=== PATIENT | male | born 1975 | race Caucasian/White ===

== ENCOUNTER 2016-12-08 14:20 | Emergency (ER) | payer OTHER ==
[~2016-12-08 14:20] MED LIST: /CELE20CA OR; BUSP15TA OR; GABA600T3 OR; NICO21DI4 TD; PRIL20CA OR; PROP10TAB OR; TRAM50TA2 OR; TRAZ50TA OR
[2016-12-08] MEDS ORDERED: GASTROGRAFIN SOLUTION 30ML (Q9963) As Ordered ONE (15:44)
[2016-12-08 16:02] LABS: BASO % 0.3 % (0.0-1.0); EOS % 0.7 % (0.0-3.0); LARGE UNSTAINED CELL # 0.1 K/mm3 (0.0-0.4); LARGE UNSTAINED CELL % 0.7 % (0.0-4.0); LYMPH # 1.3 K/mm3 (1.5-4.5); LYMPH % 17.9 % (24.0-44.0); MEAN CORPUSCULAR HEMOGLOBIN 31.7 pg (27.0-33.0); MEAN CORPUSCULAR VOLUME 90.6 fl (80.0-96.0); MONO # 0.4 K/mm3 (0.0-0.8); NEUTROPHILS # 5.2 K/mm3 (1.8-7.7); NEUTROPHILS % 75.4 % (36.0-66.0); PLATELET COUNT, AUTOMATED 194 k/mm3 (150-450); RED CELL DISTRIBUTION WIDTH 13.4 % (11.5-14.5)
[2016-12-08 16:25] LABS: ALBUMIN/GLOBULIN RATIO 1.25 (1.00-1.93); ALKALINE PHOSPHATASE 61 U/L (45-117); ALT/SGPT 26 U/L (12-78); ANION GAP 8 MEQ/L (8-16); AST/SGOT 20 U/L (15-37); BILIRUBIN,DIRECT 0.1 MG/DL (0.0-0.2); BILIRUBIN,TOTAL 0.7 MG/DL (0.2-1.0); BLOOD UREA NITROGEN 10 MG/DL (7-18); CALCIUM LEVEL 9.2 MG/DL (8.5-10.1); CARBON DIOXIDE LEVEL 29 MEQ/L (21-32); CHLORIDE LEVEL 106 MEQ/L (98-107); CREATININE FOR GFR 1.09 MG/DL (0.70-1.30); GLOMERULAR FILTRATION RATE > 60.0 (>60); GLUCOSE, FASTING 96 MG/DL (70-105); POTASSIUM SERUM 3.8 MEQ/L (3.5-5.1); SODIUM LEVEL 143 MEQ/L (136-145); TOTAL PROTEIN 7.2 GM/DL (6.4-8.2)
[2016-12-08] MEDS ORDERED: ONDANSETRON 4 MG ORAL DISINTEGRATING TAB (S0181) As Ordered ONE (16:34)
[2016-12-08] MEDS ORDERED: ISOVUE-370 76% 100ML VIAL (Q9967) As Ordered ONE (17:10)
--- NOTE | 2016-12-08 18:20 | REPUSA ---
CT of the abdomen and pelvis with contrast Clinical statement: Pain. Technique: Multiple axial CT images were obtained from the base of the lungs through the floor of the pelvis utilizing 5 mm axial slices after administration of nonionic intravenous contrast. Coronal an d sagittal reconstructions were also obtained. No comparison is available. Findings: Chest: The visualized lung bases are clear. Abdomen: The liver, spleen, pancreas, kidneys, and left adrenal gland are unremarkable. A 2.4 cm simp le cyst is seen in the posterior left kidney. There is a large low attenuation lesion apparently orig inating from the posterior medial limb of the right adrenal gland measuring 7.5 x 5.4 cm. The aorta i s within normal limits. There is no evidence of abdominal lymphadenopathy or ascites. Pelvis: There are several periumbilical hernia is noted. The right periumbilical hernia containing nu merous small bowel loops. There is no evidence of incarceration or obstruction at this site. The sherly sree bowel is unremarkable, with no obstructive or inflammatory changes. The urinary bladder is with in normal limits. The other pelvic structures appear grossly intact. There is no evidence of pelvic l ymphadenopathy or ascites. Bones: There are no suspicious osseous abnormalities seen. Impression: 1. Several large periumbilical hernias as described. The right periumbilical hernia containing chyna us small bowel loops which are neither incarcerated or obstructed. The others containing only omental fat. No other inflammatory changes are seen. 2. Simple left renal cyst. 3. Large low attenuation right adrenal mass, most consistent with a large benign adrenal adenoma.
--- NOTE | 2016-12-08 20:05 | EDDOCDS ---
Nurse's Notes [facility] Name: Pierre Padilla Age: 41 yrs Sex: Male : 1975 Arrival Date: 12/08/2016 Time: 14:20 Bed I2 / M2 Private MD: RAMESH [facility]IME [facility] Diagnosis: Umbilical hernia;Disorder of adrenal gland, unspecified Presentation: 12/08 14:46 Presenting complaint: Patient states: stomach pain for several days, pain is area of kr3 umbilical hernia. Risk factors: the patient reports not having a history of previous torsion. Adult Sepsis Screening: The patient does not have new or worsening altered mentation. Patient's respiratory rate is less than 22. Systolic blood pressure is greater than 100. Patient has a qSOFA score of 0- Negative Sepsis Screen. Suicide/Homicide risk assessment- the patient denies having any suicidal and/or homicidal ideations and does not present with any other emotional, behavioral or mental health complaints. Status: Patient is not a service specialist or dependent. Transition of care: patient was not received from another setting of care. 14:46 Acuity: BECKY Level 3 kr3 14:46 Method Of Arrival: Ambulance kr3 Triage Assessment: 14:48 General: Appears in no apparent distress, Behavior is appropriate for age, cooperative. kr3 Pain: Location: umbilical area Pain currently is 4 out of 10 on a pain scale. At worst was 10 out of 10 on a pain scale. HIV screening NA for this visit Offered previously. GI: Reports nausea. GI: Reports has not tried to eat today. Derm: Skin is normal. Historical: - Allergies: no known allergies; - Home Meds: 1. gabapentin 600 mg Oral tab 1 tab 3 times per day 2. omeprazole 40 mg Oral cpDR 1 cap once daily 3. Prozac 40 mg Oral cap 1 cap once daily 4. clonazepam 0.5 mg Oral tab 1 tab 2 times per day - PMHx: Anxiety; Depression; GERD; LE neuropathy; Umbilical hernia; - PSHx: Gastric Bypass (2001); - Social history: Smoking status: Patient uses tobacco products, current every day smoker. No barriers to communication noted, The patient speaks fluent Upper Sorbian, Speaks appropriately for age. - Family history: Not pertinent. - : The pt / caregiver states he / she is not on anticoagulants. Home medication list is obtained from the patient. - Exposure Risk Screening:: None identified. Screenin:00 Screening information is obtained from the patient. Fall risk: No risks identified. ml6 Assistance ADL's: requires no assistance with activities of daily living. Abuse/DV Screen: The patient / caregiver reports he/she is: not in a situation that causes fear, pain or injury. Nutritional screening: No deficits noted. Advance Directives: Currently, there is no health care proxy. home support is adequate. Assessment: 14:50 General: Appears in no apparent distress, Behavior is appropriate for age, cooperative. ml6 Cardiovascular: No deficits noted. Respiratory: No deficits noted. Airway is patent Breath sounds are clear bilaterally. GI: Abdomen is obese, Bowel sounds present X 4 quads. Abd is soft X 4 quads Abd is tender to palpation X 4 quads. Reports nausea, Denies. 15:45 Reassessment: Patient appears in no apparent distress at this time. Patient denies pain ml6 at this time. Patient states feeling better. Patient states symptoms have improved. 16:50 Reassessment: Patient appears in no apparent distress at this time. Patient denies pain ml6 at this time. Patient states feeling better. Patient states symptoms have improved. patient denies pain or discomfort. 17:50 General: Appears in no apparent distress. Pain: Denies pain. Neurological: No deficits ml6 noted. Level of Consciousness is awake, alert, Oriented to person, place, time, Ciso are equal bilaterally. Cardiovascular: No deficits noted. Capillary refill < 3 seconds is brisk in bilateral fingers toes Heart tones S1 S2 present Edema is absent. Pulses are all present. Rhythm is regular Chest pain is denied. Respiratory: No deficits noted. Airway is patent Respiratory effort is even, unlabored, Respiratory pattern is regular, symmetrical, Breath sounds are clear bilaterally. GI: Abdomen is obese, Bowel sounds present X 4 quads. Abd is soft and non tender X 4 quads. 20:02 General: Appears in no apparent distress, comfortable, Behavior is cooperative. Pain: jf3 Denies pain. Neurological: Level of Consciousness is awake, alert, Oriented to person, place, time. Cardiovascular: Capillary refill < 3 seconds Chest pain is denied. Respiratory: Airway is patent Respiratory effort is even, unlabored, Respiratory pattern is regular, symmetrical. Derm: Skin is pink, warm & dry. Vital Signs: 14:23 BP 126 / 71; Pulse 74; Resp 18 S; Temp 98.7(O); Pulse Ox 98% on R/A; Weight 163.29 kg gr2 (R); Height 5 ft. 10 in. (177.80 cm) (R); Pain 3/10; 18:00 BP 185 / 84; Pulse 71; Resp 20; Temp 99.3; Pulse Ox 97% ; Pain 0/10; jam1 18:45 BP 174 / 88; Pulse 56; Resp 20; Temp 98.9; Pulse Ox 97% ; Pain 0/10; jam1 19:50 BP 153 / 73; Pulse 76; Resp 18; Temp 99.0; Pulse Ox 98% ; Pain 0/10; ajs 14:23 Body Mass Index 51.65 (163.29 kg, 177.80 cm) gr2 Vitals: 14:23 Log In Time: December 08, 2016 at 14:23. gr2 ED Course: 14:22 Patient visited by Uzair Ness. gr2 14:22 Patient moved to Waiting gr2 14:23 [facility] is Private Physician. gr2 14:24 Patient visited by Uzair Ness. gr2 14:24 Patient moved to Pre RCE gr2 14:47 Triage Initiated kr3 14:50 Patient moved to Triage 3 jf3 15:23 Kingston Jara PA-C is PHCP. jk8 15:23 Sarah Dickey MD is Attending Physician. jk8 15:23 Patient visited by Kingston Jara PA-C. jk8 15:35 Patient moved to I2 / M2 jam1 15:38 [facility] Payment Agreement was scanned into [employer] and attached to record. lg 15:42 Pt greeted and oriented to ED. Patient advised of names of staff involved in care, jam location of call michelle, wait times and NPO status. Patient has correct armband on for positive identification. Placed in gown. Bed in low position. Call light in reach. Side rails up X 1. Adult w/ patient. Door closed. 15:58 Inserted peripheral IV: 18gauge IV and blood collected. Patient tolerated the procedure ml6 well. No procedures done that require assistance. Labs drawn. (by ED staff). Sent per order to lab. 16:00 The patient / caregiver is instructed regarding the plan of care and ED course. ml6 16:01 Patient visited by Pj Holley, GAY. ml6 16:51 Patient visited by Pj Holley, GAY. ml6 17:48 Patient visited by Pj Holley, GAY. ml6 18:35 Patient visited by Pj Holley, GAY. ml6 18:40 CT ABD & PELVIS: IV and Oral Contrast Returned. EDMS 19:04 Adarsh Phan DO is Referral Physician. jk8 19:09 Mare Gonzalez is Referral Physician. jk8 19:50 Patient visited by Rimma Frankel. ajs 20:02 Discontinued IV lock intact, bleeding controlled, pressure dressing applied, No jf3 redness/swelling at site. Administered Medications: 15:43 Drug: Diatrizoate Meglumine & Sodium 10 ml [diatrizoate meglumine and diat.sodium 66 ml6 %-10 % oral solution (10 mL)] Route: PO; 16:35 Drug: Ondansetron ODT 8 mg [ondansetron 4 mg disintegrating tablet (2 tabs)] Route: PO; ml6 17:43 CANCELLED (iv): morphine 4 mg IM once jk8 17:47 CANCELLED (reduced): morphine 4 mg IVP once jk8 Order Results: Lab Order: LINCOL[place]; SPEC'M 12/08/16 15:55 Test: GLUCOSE, FASTING; Value: 96; Range: 70-105; Units: MG/DL; Status: F Test: BLOOD UREA NITROGEN; Value: 10; Range: 7-18; Units: MG/DL; Status: F Test: CREATININE FOR GFR; Value: 1.09; Range: 0.70-1.30; Units: MG/DL; Status: F Test: GLOMERULAR FILTRATION RATE; Value: > 60.0; Range: >60; Status: F Test: SODIUM LEVEL; Value: 143; Range: 136-145; Units: MEQ/L; Status: F Test: POTASSIUM SERUM; Value: 3.8; Range: 3.5-5.1; Units: MEQ/L; Status: F Test: CHLORIDE LEVEL; Value: 106; Range: 98-107; Units: MEQ/L; Status: F Test: CARBON DIOXIDE LEVEL; Value: 29; Range: 21-32; Units: MEQ/L; Status: F Test: ANION GAP; Value: 8; Range: 8-16; Units: MEQ/L; Status: F Test: CALCIUM LEVEL; Value: 9.2; Range: 8.5-10.1; Units: MG/DL; Status: F Test Note: ; Units are mL/min/1.73 m2 Chronic Kidney Disease Staging per NKF: Stage I & II GFR >=60 Normal to Mildly Decreased Stage III GFR 30-59 Moderately Decreased Stage IV GFR 15-29 Severely Decreased Stage V GFR <15 Very Little GFR Left ESRD GFR <15 on CHIEF VENDOR QUALITY Lab Order: CBC with Diff; SPEC'M 12/08/16 15:55 Test: WHITE BLOOD COUNT; Value: 7.0; Range: 4.0-10.0; Units: K/mm3; Status: F Test: RED BLOOD COUNT; Value: 4.60; Range: 4.30-6.10; Units: M/mm3; Status: F Test: HEMOGLOBIN; Value: 14.6; Range: 14.0-18.0; Units: g/dl; Status: F Test: HEMATOCRIT; Value: 41.7; Range: 42.0-52.0; Abnormal: Below low normal; Units: %; Status: F Test: MEAN CORPUSCULAR VOLUME; Value: 90.6; Range: 80.0-96.0; Units: fl; Status: F Test: MEAN CORPUSCULAR HEMOGLOBIN; Value: 31.7; Range: 27.0-33.0; Units: pg; Status: F Test: MEAN CORPUSCULAR HGB CONC; Value: 35.0; Range: 32.0-36.5; Units: g/dl; Status: F Test: RED CELL DISTRIBUTION WIDTH; Value: 13.4; Range: 11.5-14.5; Units: %; Status: F Test: PLATELET COUNT, AUTOMATED; Value: 194; Range: 150-450; Units: k/mm3; Status: F Test: NEUTROPHILS %; Value: 75.4; Range: 36.0-66.0; Abnormal: Above high normal; Units: %; Status: F Test: LYMPH %; Value: 17.9; Range: 24.0-44.0; Abnormal: Below low normal; Units: %; Status: F Test: MONO %; Value: 5.0; Range: 0.0-5.0; Units: %; Status: F Test: EOS %; Value: 0.7; Range: 0.0-3.0; Units: %; Status: F Test: BASO %; Value: 0.3; Range: 0.0-1.0; Units: %; Status: F Test: LARGE UNSTAINED CELL %; Value: 0.7; Range: 0.0-4.0; Units: %; Status: F Test: NEUTROPHILS #; Value: 5.2; Range: 1.8-7.7; Units: K/mm3; Status: F Test: LYMPH #; Value: 1.3; Range: 1.5-4.5; Abnormal: Below low normal; Units: K/mm3; Status: F Test: MONO #; Value: 0.4; Range: 0.0-0.8; Units: K/mm3; Status: F Test: EOS #; Value: 0.0; Range: 0.0-0.50; Units: K/mm3; Status: F Test: BASO #; Value: 0.0; Range: 0.0-0.2; Units: K/mm3; Status: F Test: LARGE UNSTAINED CELL #; Value: 0.1; Range: 0.0-0.4; Units: K/mm3; Status: F Lab Order: Liver Profile; SPEC'M 12/08/16 15:55 Test: AST/SGOT; Value: 20; Range: 15-37; Units: U/L; Status: F Test: ALT/SGPT; Value: 26; Range: 12-78; Units: U/L; Status: F Test: ALKALINE PHOSPHATASE; Value: 61; Range: 45-117; Units: U/L; Status: F Test: BILIRUBIN,TOTAL; Value: 0.7; Range: 0.2-1.0; Units: MG/DL; Status: F Test: BILIRUBIN,DIRECT; Value: 0.1; Range: 0.0-0.2; Units: MG/DL; Status: F Test: TOTAL PROTEIN; Value: 7.2; Range: 6.4-8.2; Units: GM/DL; Status: F Test: ALBUMIN; Value: 4.0; Range: 3.2-5.2; Units: GM/DL; Status: F Test: ALBUMIN/GLOBULIN RATIO; Value: 1.25; Range: 1.00-1.93; Status: F Radiology Order: CT ABD & PELVIS: IV and Oral Contrast Test: CT ABD & PELVIS: IV and Oral Contrast REASON FOR EXAMINATION: Abdomen Pain; ; CT of the abdomen and pelvis with contrast; Clinical statement: Pain.; Technique: Multiple axial CT images were obtained from the base of the lungs through the floor of the; pelvis utilizing 5 mm axial slices after administration of nonionic intravenous contrast. Coronal an; d sagittal reconstructions were also obtained.; No comparison is available.; Findings:; Chest: The visualized lung bases are clear.; Abdomen: The liver, spleen, pancreas, kidneys, and left adrenal gland are unremarkable. A 2.4 cm simp; le cyst is seen in the posterior left kidney. There is a large low attenuation lesion apparently orig; inating from the posterior medial limb of the right adrenal gland measuring 7.5 x 5.4 cm. The aorta i; s within normal limits. There is no evidence of abdominal lymphadenopathy or ascites.; Pelvis: There are several periumbilical hernia is noted. The right periumbilical hernia containing nu; merous small bowel loops. There is no evidence of incarceration or obstruction at this site. The sherly; sree bowel is unremarkable, with no obstructive or inflammatory changes. The urinary bladder is with; in normal limits. The other pelvic structures appear grossly intact. There is no evidence of pelvic l; ymphadenopathy or ascites.; Bones: There are no suspicious osseous abnormalities seen.; Impression:; 1. Several large periumbilical hernias as described. The right periumbilical hernia containing chyna; us small bowel loops which are neither incarcerated or obstructed. The others containing only omental; fat. No other inflammatory changes are seen.; 2. Simple left renal cyst.; 3. Large low attenuation right adrenal mass, most consistent with a large benign adrenal adenoma.; ; Outcome: 19:05 Discharge ordered by Provider. jk8 20:03 Discharge Assessment: Patient awake, alert and oriented x 3. No cognitive and/or jf3 functional deficits noted. Patient verbalized understanding of disposition instructions. patient administered narcotics - no. The following High Risk Discharge criteria are identified: None. Discharged to home ambulatory, with significant other. Condition: good. Discharge instructions given to patient, Instructed on discharge instructions, follow up and referral plans. medication usage, Demonstrated understanding of instructions, medications, Pt was receptive of discharge instructions/ teaching. CT Study completed. Property :Personal belongings accompany Pt. 20:04 Patient left the ED. jf3 Signatures: Dispatcher [employer] EDMS Sonia Johnston, SPOT WORKER SPOT WORKER jam1 Nat Melchor, Reg Reg lg Brenda Ramesh,RN RN kr3 Pj Holley, RN RN ml6 Rimma Frankel Gainslee gr2 Kingston Jara, PADebra PADebra jk8 Kenrick Cross,RN RN jf3 MTDSigrid
--- NOTE | 2016-12-08 20:05 | EDDOCDS ---
Physician Documentation [facility] Name: Pierre Padilla Age: 41 yrs Sex: Male : 1975 Arrival Date: 12/08/2016 Time: 14:20 Bed I2 / M2 Private MD: RAMESH JAIME, CLINIC Disposition: 12/08/16 19:05 Discharged to Home/Self Care. Impression: Umbilical hernia, Disorder of adrenal gland, unspecified. - Condition is Stable. - Prescriptions for docusate sodium 100 mg Oral capsule - take 1 capsule by ORAL route 2 times per day; 60 capsule. - Medication Reconciliation, Local Pharmacy Hours form. - Follow up: Emergency Department; When: As soon as possible; Reason: Worsening of conditions. Follow up: Adarsh Phan DO; When: 2 - 3 days; Reason: Recheck today's complaints. Follow up: Mare Gonzalez; When: 2 - 3 days; Reason: Recheck today's complaints. - Problem is new. - Symptoms are unchanged. Historical: - Allergies: no known allergies; - Home Meds: 1. gabapentin 600 mg Oral tab 1 tab 3 times per day 2. omeprazole 40 mg Oral cpDR 1 cap once daily 3. Prozac 40 mg Oral cap 1 cap once daily 4. clonazepam 0.5 mg Oral tab 1 tab 2 times per day - PMHx: Anxiety; Depression; GERD; LE neuropathy; Umbilical hernia; - PSHx: Gastric Bypass (2001); - Social history: Smoking status: Patient uses tobacco products, current every day smoker. No barriers to communication noted, The patient speaks fluent Spanish, Speaks appropriately for age. - Family history: Not pertinent. - : The pt / caregiver states he / she is not on anticoagulants. Home medication list is obtained from the patient. - Exposure Risk Screening:: None identified. Vital Signs: 12/08 14:23 BP 126 / 71; Pulse 74; Resp 18 S; Temp 98.7(O); Pulse Ox 98% on R/A; Weight 163.29 kg / gr2 359.99 lbs (R); Height 5 ft. 10 in. (177.80 cm) (R); Pain 3/10; 18:00 BP 185 / 84; Pulse 71; Resp 20; Temp 99.3; Pulse Ox 97% ; Pain 0/10; jam1 18:45 BP 174 / 88; Pulse 56; Resp 20; Temp 98.9; Pulse Ox 97% ; Pain 0/10; jam1 19:50 BP 153 / 73; Pulse 76; Resp 18; Temp 99.0; Pulse Ox 98% ; Pain 0/10; ajs 14:23 Body Mass Index 51.65 (163.29 kg, 177.80 cm) gr2 MDM: 14:42 Abdomen, Flat\E\Upright,PA Chest Ordered. EDMS 15:30 BMP Ordered. EDMS 15:30 CBC with Diff Ordered. EDMS 15:30 Liver Profile Ordered. EDMS 15:31 CT ABD & PELVIS: IV and Oral Contrast Ordered. EDMS 15:33 Financial registration complete. lg 15:35 IV Saline Lock ordered. jk8 15:38 [facility] Payment Agreement was scanned into [employer] and attached to record. lg 15:40 Diatrizoate Meglumine & Sodium Liquid 10 ml PO once; mix in 290cc of water; at 1545 and ml6 1615 x1 ordered. 16:34 Ondansetron ODT Oral Disintegrating Tablet 8 mg PO once ordered. jk8 16:34 CBC with Diff Reviewed. jk8 16:34 BMP Reviewed. jk8 16:34 Liver Profile Reviewed. jk8 17:44 Ice Pack ordered. jk8 18:22 ECG WITH READING ER PHYS+CARDIAG ordered. EDMS 18:32 Vital Signs ordered. jk8 19:13 CT ABD & PELVIS: IV and Oral Contrast Reviewed. jk8 Administered Medications: 15:43 Drug: Diatrizoate Meglumine & Sodium 10 ml [diatrizoate meglumine and diat.sodium 66 ml6 %-10 % oral solution (10 mL)] Route: PO; 16:35 Drug: Ondansetron ODT 8 mg [ondansetron 4 mg disintegrating tablet (2 tabs)] Route: PO; ml6 17:43 CANCELLED (iv): morphine 4 mg IM once jk8 17:47 CANCELLED (reduced): morphine 4 mg IVP once jk8 Signatures: Dispatcher [employer] EDMS Nat Melchor, Quentin Reg lg Brenda Ramesh,RN RN kr3 Pj Holley RN RN ml6 Kingston Jara PA-C PA-C jk8 Kenrick Cross,RN RN jf3 The chart was reviewed and I authenticate all verbal orders and agree with the evaluation and treatment provided.Corrections: (The following items were deleted from the chart) 17:43 17:43 morphine 4 mg IM once ordered. jk8 jk8 17:47 17:43 morphine 4 mg IVP once ordered. jk8 jk8 17:58 17:34 LACTIC ACID LEVEL, LACTATE+LAB ordered. EDMS EDMS Attachments: 15:38 [facility] [place] Agreement lg MTDD
--- NOTE | 2016-12-09 05:37 | REP ---
Abdominal series: Four views. History: Abdominal pain and constipation. Findings: Upright chest radiograph is unremarkable. There is no evidence of infiltrate or free subdiaphragmatic air. Heart is not enlarged. Pleural angles are sharp. Supine and erect views of the abdomen show clips in the right upper quadrant post cholecystectomy. There are two or three loops of air-filled mildly prominent small bowel in the central abdomen. No significant small bowel air-fluid level is seen. There is some air and stool in the proximal and distal colon. No colonic dilation is seen. Flank stripes are intact. No mass or organomegaly is seen. Impression: Nonspecific central abdominal small bowel loops. Clips in the right upper quadrant post cholecystectomy. No evidence of free air. Signed by Ismael Mcelroy MD 12/09/2016 02:22 P
--- NOTE | 2016-12-09 07:09 | ECGEPIP ---
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
--- NOTE | 2016-12-09 13:29 | ER ---
DATE OF CONSULTATION: 12/09/2016 Chief complaint is abdominal pain and nausea. HISTORY OF PRESENT ILLNESS: Patient is a 41-year-old male who had gastric bypass surgery in 2001. It was done open. Since then, he has had an incisional hernia in the upper midline that was supraumbilically. He was told to lose about 100 pounds before anyone would consider surgery. So e has been putting this off for many years. Over the past few weeks, he has had some increased pain in his abdomen and some nausea and having difficulty with bowel movements. So he came into emergency room for evaluation. He is still able to reduce this hernia on his own. When he lays down flat it gets soft and reduces. No problems with fevers or chills. No vomiting. His main complaint is that he felt constipated and was worried that this hernia may be causing some sort of blockage. PAST MEDICAL HISTORY: Anxiety, depression, gastroesophageal reflux disease (GERD), lower extremity neuropathy, incisional hernia. PAST SURGICAL HISTORY: Gastric bypass in 2001. SOCIAL HISTORY: Smokes pack a day. Denies any drug or alcohol abuse. FAMILY HISTORY: Noncontributory. ALLERGIES: None. HOMED MEDICATIONS: - gabapentin - omeprazole - Prozac - clonazepam REVIEW OF SYSTEMS: Pertinent positive as stated in the history of present. PHYSICAL EXAMINATION: General: Alert and oriented times three. No acute distress. Vitals: Blood pressure 126/71, pulse 74, respirations 18, temperature 98.7, pulse oximetry 98% room air. HEENT: Pupils equal, round, react to light and accommodation. Heart: S1, S2. Regular rate and rhythm. Lungs: Clear to auscultation bilaterally. Abdomen: Soft, nontender, nondistended. Bowel sounds positive. There is a palpable midline partially incarcerated hernia just above the umbilicus. Extremities: No clubbing, cyanosis or edema. LABORATORY DATA: White count 7, hemoglobin 14.6, platelets 194, potassium 3.8, total bilirubin 0.7, albumin 4. IMAGING: CT abdomen and pelvis shows several large periumbilical hernias as described. The right periumbilical hernia contains numerous small-bowel loopsk, which are nonobstructed. The others containing omental fat. ASSESSMENT AND PLAN: The patient is 41-year-old male with a large multi defect incisional hernia from previous gastric bypass surgery. Some of these hernias are reducible. Some are incarcerated. They are all group together in one large area. At this time, his pain is reduced. The bowel wall portion of this hernia is reduced. No signs of bowel obstruction. He is also complaining of some intermittent chest pain and palpitations over the last few weeks. Therefore, recommendation is to check an electrocardiogram (EKG). If that is okay, have him discharged from the emergency room, followup with me in the office this week to schedule an outpatient laparoscopic repair. We will also send him for cardiac clearance prior to surgery at the workup this chest pain.
--- NOTE | 2016-12-10 21:06 | EDDOCDS ---
Physician Documentation [facility] Name: Pierre Padilla Age: 41 yrs Sex: Male : 1975 Arrival Date: 12/08/2016 Time: 14:20 Bed I2 / M2 Private MD: RAMESH JAIME, CLINIC Disposition: 12/08/16 19:05 Discharged to Home/Self Care. Impression: Umbilical hernia, Disorder of adrenal gland, unspecified. - Condition is Stable. - Prescriptions for docusate sodium 100 mg Oral capsule - take 1 capsule by ORAL route 2 times per day; 60 capsule. - Medication Reconciliation, Local Pharmacy Hours form. - Follow up: Emergency Department; When: As soon as possible; Reason: Worsening of conditions. Follow up: Adarsh Phan DO; When: 2 - 3 days; Reason: Recheck today's complaints. Follow up: Mare Gonzalez; When: 2 - 3 days; Reason: Recheck today's complaints. - Problem is new. - Symptoms are unchanged. Historical: - Allergies: no known allergies; - Home Meds: 1. gabapentin 600 mg Oral tab 1 tab 3 times per day 2. omeprazole 40 mg Oral cpDR 1 cap once daily 3. Prozac 40 mg Oral cap 1 cap once daily 4. clonazepam 0.5 mg Oral tab 1 tab 2 times per day - PMHx: Anxiety; Depression; GERD; LE neuropathy; Umbilical hernia; - PSHx: Gastric Bypass (2001); - Social history: Smoking status: Patient uses tobacco products, current every day smoker. No barriers to communication noted, The patient speaks fluent Khmer, Speaks appropriately for age. - Family history: Not pertinent. - : The pt / caregiver states he / she is not on anticoagulants. Home medication list is obtained from the patient. - Exposure Risk Screening:: None identified. Vital Signs: 12/08 14:23 BP 126 / 71; Pulse 74; Resp 18 S; Temp 98.7(O); Pulse Ox 98% on R/A; Weight 163.29 kg / gr2 359.99 lbs (R); Height 5 ft. 10 in. (177.80 cm) (R); Pain 3/10; 18:00 BP 185 / 84; Pulse 71; Resp 20; Temp 99.3; Pulse Ox 97% ; Pain 0/10; jam1 18:45 BP 174 / 88; Pulse 56; Resp 20; Temp 98.9; Pulse Ox 97% ; Pain 0/10; jam1 19:50 BP 153 / 73; Pulse 76; Resp 18; Temp 99.0; Pulse Ox 98% ; Pain 0/10; ajs 14:23 Body Mass Index 51.65 (163.29 kg, 177.80 cm) gr2 MDM: 14:42 Abdomen, Flat\E\Upright,PA Chest Ordered. EDMS 15:30 BMP Ordered. EDMS 15:30 CBC with Diff Ordered. EDMS 15:30 Liver Profile Ordered. EDMS 15:31 CT ABD & PELVIS: IV and Oral Contrast Ordered. EDMS 15:33 Financial registration complete. lg 15:35 IV Saline Lock ordered. jk8 15:38 [facility] Payment Agreement was scanned into [employer] and attached to record. lg 15:40 Diatrizoate Meglumine & Sodium Liquid 10 ml PO once; mix in 290cc of water; at 1545 and ml6 1615 x1 ordered. 16:34 Ondansetron ODT Oral Disintegrating Tablet 8 mg PO once ordered. jk8 16:34 CBC with Diff Reviewed. jk8 16:34 BMP Reviewed. jk8 16:34 Liver Profile Reviewed. jk8 17:44 Ice Pack ordered. jk8 18:22 ECG WITH READING ER PHYS+CARDIAG ordered. EDMS 18:32 Vital Signs ordered. jk8 19:13 CT ABD & PELVIS: IV and Oral Contrast Reviewed. jk8 12/09 11:47 T-Sheet-- Draft Copy was scanned into [employer] and attached to record. gb 11:47 ECG/EKG was scanned into [employer] and attached to record. gb Administered Medications: 12/08 15:43 Drug: Diatrizoate Meglumine & Sodium 10 ml [diatrizoate meglumine and diat.sodium 66 ml6 %-10 % oral solution (10 mL)] Route: PO; 16:35 Drug: Ondansetron ODT 8 mg [ondansetron 4 mg disintegrating tablet (2 tabs)] Route: PO; ml6 17:43 CANCELLED (iv): morphine 4 mg IM once jk8 17:47 CANCELLED (reduced): morphine 4 mg IVP once jk8 Signatures: Dispatcher [employer] EDMS Chloe Pruitt, Reg Reg gb Nat Melchor, Reg Reg lg Brenda Ramesh,RN RN kr3 Pj Holley, RN RN ml6 Kingston Jara PA-C PA-C jk8 Kenrick Cross,RN RN jf3 The chart was reviewed and I authenticate all verbal orders and agree with the evaluation and treatment provided.Corrections: (The following items were deleted from the chart) 17:43 17:43 morphine 4 mg IM once ordered. jk8 jk8 17:47 17:43 morphine 4 mg IVP once ordered. jk8 jk8 17:58 17:34 LACTIC ACID LEVEL, LACTATE+LAB ordered. EDMS EDMS Attachments: 15:38 [facility] lg 12/09 11:47 T-Sheet-- Draft Copy gb 11:47 ECG/EKG gb Chart Complete MTDD
--- NOTE | 2016-12-10 21:06 | EDDOCDS ---
Nurse's Notes [facility] Name: Donta Voss Age: 41 yrs Sex: Male : 1975 Arrival Date: 12/08/2016 Time: 14:20 Bed I2 / M2 Private MD: RAMESH JAIME CLINIC Diagnosis: Umbilical hernia;Disorder of adrenal gland, unspecified Presentation: 12/08 14:46 Presenting complaint: Patient states: stomach pain for several days, pain is area of kr3 umbilical hernia. Risk factors: the patient reports not having a history of previous torsion. Adult Sepsis Screening: The patient does not have new or worsening altered mentation. Patient's respiratory rate is less than 22. Systolic blood pressure is greater than 100. Patient has a qSOFA score of 0- Negative Sepsis Screen. Suicide/Homicide risk assessment- the patient denies having any suicidal and/or homicidal ideations and does not present with any other emotional, behavioral or mental health complaints. 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 Transition of care: patient was not received from another setting of care. 14:46 Acuity: BECKY Level 3 kr3 14:46 Method Of Arrival: Ambulance kr3 Triage Assessment: 14:48 General: Appears in no apparent distress, Behavior is appropriate for age, cooperative. kr3 Pain: Location: umbilical area Pain currently is 4 out of 10 on a pain scale. At worst was 10 out of 10 on a pain scale. HIV screening NA for this visit Offered previously. GI: Reports nausea. GI: Reports has not tried to eat today. Derm: Skin is normal. Historical: - Allergies: no known allergies; - Home Meds: 1. gabapentin 600 mg Oral tab 1 tab 3 times per day 2. omeprazole 40 mg Oral cpDR 1 cap once daily 3. Prozac 40 mg Oral cap 1 cap once daily 4. clonazepam 0.5 mg Oral tab 1 tab 2 times per day - PMHx: Anxiety; Depression; GERD; LE neuropathy; Umbilical hernia; - PSHx: Gastric Bypass (2001); - Social history: Smoking status: Patient uses tobacco products, current every day smoker. No barriers to communication noted, The patient speaks fluent Greek, Speaks appropriately for age. - Family history: Not pertinent. - : The pt / caregiver states he / she is not on anticoagulants. Home medication list is obtained from the patient. - Exposure Risk Screening:: None identified. Screenin:00 Screening information is obtained from the patient. Fall risk: No risks identified. ml6 Assistance ADL's: requires no assistance with activities of daily living. Abuse/DV Screen: The patient / caregiver reports he/she is: not in a situation that causes fear, pain or injury. Nutritional screening: No deficits noted. Advance Directives: Currently, there is no health care proxy. home support is adequate. Assessment: 14:50 General: Appears in no apparent distress, Behavior is appropriate for age, cooperative. ml6 Cardiovascular: No deficits noted. Respiratory: No deficits noted. Airway is patent Breath sounds are clear bilaterally. GI: Abdomen is obese, Bowel sounds present X 4 quads. Abd is soft X 4 quads Abd is tender to palpation X 4 quads. Reports nausea, Denies. 15:45 Reassessment: Patient appears in no apparent distress at this time. Patient denies pain ml6 at this time. Patient states feeling better. Patient states symptoms have improved. 16:50 Reassessment: Patient appears in no apparent distress at this time. Patient denies pain ml6 at this time. Patient states feeling better. Patient states symptoms have improved. patient denies pain or discomfort. 17:50 General: Appears in no apparent distress. Pain: Denies pain. Neurological: No deficits ml6 noted. Level of Consciousness is awake, alert, Oriented to person, place, time, Regional Director Of Finance are equal bilaterally. Cardiovascular: No deficits noted. Capillary refill < 3 seconds is brisk in bilateral fingers toes Heart tones S1 S2 present Edema is absent. Pulses are all present. Rhythm is regular Chest pain is denied. Respiratory: No deficits noted. Airway is patent Respiratory effort is even, unlabored, Respiratory pattern is regular, symmetrical, Breath sounds are clear bilaterally. GI: Abdomen is obese, Bowel sounds present X 4 quads. Abd is soft and non tender X 4 quads. 20:02 General: Appears in no apparent distress, comfortable, Behavior is cooperative. Pain: jf3 Denies pain. Neurological: Level of Consciousness is awake, alert, Oriented to person, place, time. Cardiovascular: Capillary refill < 3 seconds Chest pain is denied. Respiratory: Airway is patent Respiratory effort is even, unlabored, Respiratory pattern is regular, symmetrical. Derm: Skin is pink, warm & dry. Vital Signs: 14:23 BP 126 / 71; Pulse 74; Resp 18 S; Temp 98.7(O); Pulse Ox 98% on R/A; Weight 163.29 kg gr2 (R); Height 5 ft. 10 in. (177.80 cm) (R); Pain 3/10; 18:00 BP 185 / 84; Pulse 71; Resp 20; Temp 99.3; Pulse Ox 97% ; Pain 0/10; jam1 18:45 BP 174 / 88; Pulse 56; Resp 20; Temp 98.9; Pulse Ox 97% ; Pain 0/10; jam1 19:50 BP 153 / 73; Pulse 76; Resp 18; Temp 99.0; Pulse Ox 98% ; Pain 0/10; ajs 14:23 Body Mass Index 51.65 (163.29 kg, 177.80 cm) gr2 Vitals: 14:23 Log In Time: December 08, 2016 at 14:23. gr2 ED Course: 14:22 Patient visited by Uzair Ness. gr2 14:22 Patient moved to Waiting gr2 14:23 [facility] is Private Physician. gr2 14:24 Patient visited by Uzair Ness. gr2 14:24 Patient moved to Pre RCE gr2 14:47 Triage Initiated kr3 14:50 Patient moved to Triage 3 jf3 15:23 Kingston Jara PA-C is PHCP. jk8 15:23 Sarah Dickey MD is Attending Physician. jk8 15:23 Patient visited by Kingston Jara PA-C. jk8 15:35 Patient moved to I2 / M2 jam1 15:38 [facility] Payment Agreement was scanned into [email or web address] and attached to record. lg 15:42 Pt greeted and oriented to ED. Patient advised of names of staff involved in care, jam location of call michelle, wait times and NPO status. Patient has correct armband on for positive identification. Placed in gown. Bed in low position. Call light in reach. Side rails up X 1. Adult w/ patient. Door closed. 15:58 Inserted peripheral IV: 18gauge IV and blood collected. Patient tolerated the procedure ml6 well. No procedures done that require assistance. Labs drawn. (by ED staff). Sent per order to lab. 16:00 The patient / caregiver is instructed regarding the plan of care and ED course. ml6 16:01 Patient visited by Pj Holley, GAY. ml6 16:51 Patient visited by Pj Holley, GAY. ml6 17:48 Patient visited by Pj Holley, GAY. ml6 18:35 Patient visited by Pj Holley, RN. ml6 18:40 CT ABD & PELVIS: IV and Oral Contrast Returned. EDMS 19:04 Adarsh Phan DO is Referral Physician. jk8 19:09 Mare Gonzalez is Referral Physician. jk8 19:50 Patient visited by Rimma Frankel. ajs 20:02 Discontinued IV lock intact, bleeding controlled, pressure dressing applied, No jf3 redness/swelling at site. 02 06:08 Abdomen, Flat\E\Upright,PA Chest Returned. EDMS 07:15 EKG-ADULT Returned. EDMS 11:47 T-Sheet-- Draft Copy was scanned into [email or web address] and attached to record. gb 11:47 ECG/EKG was scanned into [email or web address] and attached to record. gb Administered Medications: 12/08 15:43 Drug: Diatrizoate Meglumine & Sodium 10 ml [diatrizoate meglumine and diat.sodium 66 ml6 %-10 % oral solution (10 mL)] Route: PO; 16:35 Drug: Ondansetron ODT 8 mg [ondansetron 4 mg disintegrating tablet (2 tabs)] Route: PO; ml6 17:43 CANCELLED (iv): morphine 4 mg IM once jk8 17:47 CANCELLED (reduced): morphine 4 mg IVP once jk8 Order Results: Lab Order: BMP; SPEC'M 12/08/16 15:55 Test: GLUCOSE, FASTING; Value: 96; Range: 70-105; Units: MG/DL; Status: F Test: BLOOD UREA NITROGEN; Value: 10; Range: 7-18; Units: MG/DL; Status: F Test: CREATININE FOR GFR; Value: 1.09; Range: 0.70-1.30; Units: MG/DL; Status: F Test: GLOMERULAR FILTRATION RATE; Value: > 60.0; Range: >60; Status: F Test: SODIUM LEVEL; Value: 143; Range: 136-145; Units: MEQ/L; Status: F Test: POTASSIUM SERUM; Value: 3.8; Range: 3.5-5.1; Units: MEQ/L; Status: F Test: CHLORIDE LEVEL; Value: 106; Range: 98-107; Units: MEQ/L; Status: F Test: CARBON DIOXIDE LEVEL; Value: 29; Range: 21-32; Units: MEQ/L; Status: F Test: ANION GAP; Value: 8; Range: 8-16; Units: MEQ/L; Status: F Test: CALCIUM LEVEL; Value: 9.2; Range: 8.5-10.1; Units: MG/DL; Status: F Test Note: ; Units are mL/min/1.73 m2 Chronic Kidney Disease Staging per NKF: Stage I & II GFR >=60 Normal to Mildly Decreased Stage III GFR 30-59 Moderately Decreased Stage IV GFR 15-29 Severely Decreased Stage V GFR <15 Very Little GFR Left ESRD GFR <15 on LOT ASSOCIATE Lab Order: CBC with Diff; SPEC'M 12/08/16 15:55 Test: WHITE BLOOD COUNT; Value: 7.0; Range: 4.0-10.0; Units: K/mm3; Status: F Test: RED BLOOD COUNT; Value: 4.60; Range: 4.30-6.10; Units: M/mm3; Status: F Test: HEMOGLOBIN; Value: 14.6; Range: 14.0-18.0; Units: g/dl; Status: F Test: HEMATOCRIT; Value: 41.7; Range: 42.0-52.0; Abnormal: Below low normal; Units: %; Status: F Test: MEAN CORPUSCULAR VOLUME; Value: 90.6; Range: 80.0-96.0; Units: fl; Status: F Test: MEAN CORPUSCULAR HEMOGLOBIN; Value: 31.7; Range: 27.0-33.0; Units: pg; Status: F Test: MEAN CORPUSCULAR HGB CONC; Value: 35.0; Range: 32.0-36.5; Units: g/dl; Status: F Test: RED CELL DISTRIBUTION WIDTH; Value: 13.4; Range: 11.5-14.5; Units: %; Status: F Test: PLATELET COUNT, AUTOMATED; Value: 194; Range: 150-450; Units: k/mm3; Status: F Test: NEUTROPHILS %; Value: 75.4; Range: 36.0-66.0; Abnormal: Above high normal; Units: %; Status: F Test: LYMPH %; Value: 17.9; Range: 24.0-44.0; Abnormal: Below low normal; Units: %; Status: F Test: MONO %; Value: 5.0; Range: 0.0-5.0; Units: %; Status: F Test: EOS %; Value: 0.7; Range: 0.0-3.0; Units: %; Status: F Test: BASO %; Value: 0.3; Range: 0.0-1.0; Units: %; Status: F Test: LARGE UNSTAINED CELL %; Value: 0.7; Range: 0.0-4.0; Units: %; Status: F Test: NEUTROPHILS #; Value: 5.2; Range: 1.8-7.7; Units: K/mm3; Status: F Test: LYMPH #; Value: 1.3; Range: 1.5-4.5; Abnormal: Below low normal; Units: K/mm3; Status: F Test: MONO #; Value: 0.4; Range: 0.0-0.8; Units: K/mm3; Status: F Test: EOS #; Value: 0.0; Range: 0.0-0.50; Units: K/mm3; Status: F Test: BASO #; Value: 0.0; Range: 0.0-0.2; Units: K/mm3; Status: F Test: LARGE UNSTAINED CELL #; Value: 0.1; Range: 0.0-0.4; Units: K/mm3; Status: F Lab Order: Liver Profile; SPEC'M 12/08/16 15:55 Test: AST/SGOT; Value: 20; Range: 15-37; Units: U/L; Status: F Test: ALT/SGPT; Value: 26; Range: 12-78; Units: U/L; Status: F Test: ALKALINE PHOSPHATASE; Value: 61; Range: 45-117; Units: U/L; Status: F Test: BILIRUBIN,TOTAL; Value: 0.7; Range: 0.2-1.0; Units: MG/DL; Status: F Test: BILIRUBIN,DIRECT; Value: 0.1; Range: 0.0-0.2; Units: MG/DL; Status: F Test: TOTAL PROTEIN; Value: 7.2; Range: 6.4-8.2; Units: GM/DL; Status: F Test: ALBUMIN; Value: 4.0; Range: 3.2-5.2; Units: GM/DL; Status: F Test: ALBUMIN/GLOBULIN RATIO; Value: 1.25; Range: 1.00-1.93; Status: F Radiology Order: Abdomen, Flat\E\Upright,PA Chest Test: Abdomen, Flat\E\Upright,PA Chest REASON FOR EXAMINATION: abd pain ?constipation; Abdominal series: Four views.; ; History: Abdominal pain and constipation.; ; Findings: Upright chest radiograph is unremarkable. There is no evidence of; infiltrate or free subdiaphragmatic air. Heart is not enlarged. Pleural angles; are sharp.; ; Supine and erect views of the abdomen show clips in the right upper quadrant post; cholecystectomy. There are two or three loops of air-filled mildly prominent; small bowel in the central abdomen. No significant small bowel air-fluid level; is seen. There is some air and stool in the proximal and distal colon. No; colonic dilation is seen. Flank stripes are intact. No mass or organomegaly is; seen.; ; Impression:; ; Nonspecific central abdominal small bowel loops. Clips in the right upper; quadrant post cholecystectomy. No evidence of free air.; ; ; Signed by; Ismael Mcelroy MD 12/09/2016 02:22 P; Radiology Order: CT ABD & PELVIS: IV and Oral Contrast Test: CT ABD & PELVIS: IV and Oral Contrast REASON FOR EXAMINATION: Abdomen Pain; ; CT of the abdomen and pelvis with contrast; Clinical statement: Pain.; Technique: Multiple axial CT images were obtained from the base of the lungs through the floor of the; pelvis utilizing 5 mm axial slices after administration of nonionic intravenous contrast. Coronal an; d sagittal reconstructions were also obtained.; No comparison is available.; Findings:; Chest: The visualized lung bases are clear.; Abdomen: The liver, spleen, pancreas, kidneys, and left adrenal gland are unremarkable. A 2.4 cm simp; le cyst is seen in the posterior left kidney. There is a large low attenuation lesion apparently orig; inating from the posterior medial limb of the right adrenal gland measuring 7.5 x 5.4 cm. The aorta i; s within normal limits. There is no evidence of abdominal lymphadenopathy or ascites.; Pelvis: There are several periumbilical hernia is noted. The right periumbilical hernia containing nu; merous small bowel loops. There is no evidence of incarceration or obstruction at this site. The sherly; sree bowel is unremarkable, with no obstructive or inflammatory changes. The urinary bladder is with; in normal limits. The other pelvic structures appear grossly intact. There is no evidence of pelvic l; ymphadenopathy or ascites.; Bones: There are no suspicious osseous abnormalities seen.; Impression:; 1. Several large periumbilical hernias as described. The right periumbilical hernia containing chyna; us small bowel loops which are neither incarcerated or obstructed. The others containing only omental; fat. No other inflammatory changes are seen.; 2. Simple left renal cyst.; 3. 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 jk8 20:03 Discharge Assessment: Patient awake, alert and oriented x 3. No cognitive and/or jf3 functional deficits noted. Patient verbalized understanding of disposition instructions. patient administered narcotics - no. The following High Risk Discharge criteria are identified: None. Discharged to home ambulatory, with significant other. Condition: good. Discharge instructions given to patient, Instructed on discharge instructions, follow up and referral plans. medication usage, Demonstrated understanding of instructions, medications, Pt was receptive of discharge instructions/ teaching. CT Study completed. Property :Personal belongings accompany Pt. 20:04 Patient left the ED. jf3 Signatures: Dispatcher [employer] EDMS Sonia Johnston, LENS GRINDING MACHINE OPERATOR LENS GRINDING MACHINE OPERATOR jam1 Chloe Pruitt, Reg Reg gb Nat Melchor, Reg Reg lg Brenda Ramesh,RN RN kr3 Pj Holley, RN RN ml6 Rimma Frankel Gainslee gr2 Kingston Jara PA-C PADebra jk8 Kenrick Cross,RN RN jf3 Chart Complete MTDD
--- NOTE | 2016-12-10 21:06 | EDDOCDS ---
Physician Documentation [facility] Name: Pierre Padilla Age: 41 yrs Sex: Male : 1975 Arrival Date: 12/08/2016 Time: 14:20 Bed I2 / M2 Private MD: RAMESH JAIME, CLINIC Disposition: 12/08/16 19:05 Discharged to Home/Self Care. Impression: Umbilical hernia, Disorder of adrenal gland, unspecified. - Condition is Stable. - Prescriptions for docusate sodium 100 mg Oral capsule - take 1 capsule by ORAL route 2 times per day; 60 capsule. - Medication Reconciliation, Local Pharmacy Hours form. - Follow up: Emergency Department; When: As soon as possible; Reason: Worsening of conditions. Follow up: Adarsh Phan DO; When: 2 - 3 days; Reason: Recheck today's complaints. Follow up: Mare Gonzalez; When: 2 - 3 days; Reason: Recheck today's complaints. - Problem is new. - Symptoms are unchanged. Historical: - Allergies: no known allergies; - Home Meds: 1. gabapentin 600 mg Oral tab 1 tab 3 times per day 2. omeprazole 40 mg Oral cpDR 1 cap once daily 3. Prozac 40 mg Oral cap 1 cap once daily 4. clonazepam 0.5 mg Oral tab 1 tab 2 times per day - PMHx: Anxiety; Depression; GERD; LE neuropathy; Umbilical hernia; - PSHx: Gastric Bypass (2001); - Social history: Smoking status: Patient uses tobacco products, current every day smoker. No barriers to communication noted, The patient speaks fluent Malay, Speaks appropriately for age. - Family history: Not pertinent. - : The pt / caregiver states he / she is not on anticoagulants. Home medication list is obtained from the patient. - Exposure Risk Screening:: None identified. Vital Signs: 12/08 14:23 BP 126 / 71; Pulse 74; Resp 18 S; Temp 98.7(O); Pulse Ox 98% on R/A; Weight 163.29 kg / gr2 359.99 lbs (R); Height 5 ft. 10 in. (177.80 cm) (R); Pain 3/10; 18:00 BP 185 / 84; Pulse 71; Resp 20; Temp 99.3; Pulse Ox 97% ; Pain 0/10; jam1 18:45 BP 174 / 88; Pulse 56; Resp 20; Temp 98.9; Pulse Ox 97% ; Pain 0/10; jam1 19:50 BP 153 / 73; Pulse 76; Resp 18; Temp 99.0; Pulse Ox 98% ; Pain 0/10; ajs 14:23 Body Mass Index 51.65 (163.29 kg, 177.80 cm) gr2 MDM: 14:42 Abdomen, Flat\E\Upright,PA Chest Ordered. EDMS 15:30 BMP Ordered. EDMS 15:30 CBC with Diff Ordered. EDMS 15:30 Liver Profile Ordered. EDMS 15:31 CT ABD & PELVIS: IV and Oral Contrast Ordered. EDMS 15:33 Financial registration complete. lg 15:35 IV Saline Lock ordered. jk8 15:38 [facility] Payment Agreement was scanned into [employer] and attached to record. lg 15:40 Diatrizoate Meglumine & Sodium Liquid 10 ml PO once; mix in 290cc of water; at 1545 and ml6 1615 x1 ordered. 16:34 Ondansetron ODT Oral Disintegrating Tablet 8 mg PO once ordered. jk8 16:34 CBC with Diff Reviewed. jk8 16:34 BMP Reviewed. jk8 16:34 Liver Profile Reviewed. jk8 17:44 Ice Pack ordered. jk8 18:22 ECG WITH READING ER PHYS+CARDIAG ordered. EDMS 18:32 Vital Signs ordered. jk8 19:13 CT ABD & PELVIS: IV and Oral Contrast Reviewed. jk8 12/09 11:47 T-Sheet-- Draft Copy was scanned into [employer] and attached to record. gb 11:47 ECG/EKG was scanned into [employer] and attached to record. gb Administered Medications: 12/08 15:43 Drug: Diatrizoate Meglumine & Sodium 10 ml [diatrizoate meglumine and diat.sodium 66 ml6 %-10 % oral solution (10 mL)] Route: PO; 16:35 Drug: Ondansetron ODT 8 mg [ondansetron 4 mg disintegrating tablet (2 tabs)] Route: PO; ml6 17:43 CANCELLED (iv): morphine 4 mg IM once jk8 17:47 CANCELLED (reduced): morphine 4 mg IVP once jk8 Signatures: Dispatcher [employer] EDMS Chloe Pruitt, Reg Reg gb Nat Melchor, Reg Reg lg Brenda Ramesh,RN RN kr3 Pj Holley, RN RN ml6 Kingston Jara PA-C PA-C jk8 Kenrick Cross,RN RN jf3 The chart was reviewed and I authenticate all verbal orders and agree with the evaluation and treatment provided.Corrections: (The following items were deleted from the chart) 17:43 17:43 morphine 4 mg IM once ordered. jk8 jk8 17:47 17:43 morphine 4 mg IVP once ordered. jk8 jk8 17:58 17:34 LACTIC ACID LEVEL, LACTATE+LAB ordered. EDMS EDMS Attachments: 15:38 [facility] lg 12/09 11:47 T-Sheet-- Draft Copy gb 11:47 ECG/EKG gb Chart Complete MTDD
== END 2016-12-08 20:04 | disposition home or self-care (01) ==
LOC: M ED 14:20
DX: K42.9 Umbilical hernia without obstruction or gangrene (principal); I10 Essential (primary) hypertension; D35.00 Benign neoplasm of unspecified adrenal gland; Z98.84 Bariatric surgery status; F41.9 Anxiety disorder, unspecified; F32.9 Major depressive disorder, single episode, unspecified; K21.9 Gastro-esophageal reflux disease without esophagitis; G57.90 Unspecified mononeuropathy of unspecified lower limb; Z79.899 Other long term (current) drug therapy; F17.200 Nicotine dependence, unspecified, uncomplicated
CPT/HCPCS: 36415; 74022; 74177; 80048; 80076; 85025; 93005; 99284; Q9963; Q9967

== ENCOUNTER 2017-01-04 16:29 | Emergency (ER) | payer OTHER ==
[~2017-01-04] VITALS: Ht 177.8 cm; Wt 149.7 kg
[2017-01-04] MEDS ORDERED: MORPHINE 4 MG/ML 1ML SYRINGE IV PRN (17:00)
[2017-01-04] MEDS ORDERED: ONDANSETRON 4MG/2ML VIAL (J2405) IV ONE (17:00)
[2017-01-04] MEDS ORDERED: NS 1,000 ML IV ONE (17:00)
[2017-01-04 17:21] LABS: BASO % 0.3 % (0.0-1.0); EOS # 0.1 K/mm3 (0.0-0.50); LARGE UNSTAINED CELL # 0.1 K/mm3 (0.0-0.4); LARGE UNSTAINED CELL % 1.3 % (0.0-4.0); LYMPH # 0.8 K/mm3 (1.5-4.5); LYMPH % 13.5 % (24.0-44.0); MEAN CORPUSCULAR HEMOGLOBIN 32.9 pg (27.0-33.0); MEAN CORPUSCULAR HGB CONC 36.5 g/dl (32.0-36.5); MEAN CORPUSCULAR VOLUME 90.2 fl (80.0-96.0); MONO # 0.3 K/mm3 (0.0-0.8); NEUTROPHILS # 4.7 K/mm3 (1.8-7.7); NEUTROPHILS % 78.9 % (36.0-66.0); PLATELET COUNT, AUTOMATED 168 k/mm3 (150-450); RED CELL DISTRIBUTION WIDTH 13.2 % (11.5-14.5)
[2017-01-04 17:48] LABS: ALBUMIN 3.7 GM/DL (3.2-5.2); ALBUMIN/GLOBULIN RATIO 1.12 (1.00-1.93); ALKALINE PHOSPHATASE 58 U/L (45-117); ALT/SGPT 43 U/L (12-78); AMYLASE 33 U/L (25-115); ANION GAP 7 MEQ/L (8-16); AST/SGOT 21 U/L (15-37); BILIRUBIN,DIRECT 0.2 MG/DL (0.0-0.2); BILIRUBIN,TOTAL 1.1 MG/DL (0.2-1.0); BLOOD UREA NITROGEN 8 MG/DL (7-18); CALCIUM LEVEL 8.6 MG/DL (8.5-10.1); CARBON DIOXIDE LEVEL 27 MEQ/L (21-32); CHLORIDE LEVEL 110 MEQ/L (98-107); CREATININE FOR GFR 0.98 MG/DL (0.70-1.30); GLOMERULAR FILTRATION RATE > 60.0 (>60); GLUCOSE, FASTING 98 MG/DL (70-105); POTASSIUM SERUM 3.6 MEQ/L (3.5-5.1); SODIUM LEVEL 144 MEQ/L (136-145)
[2017-01-04 17:50] VITALS: BP 147/85
[2017-01-04] MEDS ORDERED: ISOVUE-370 76% 100ML VIAL (Q9967) As Ordered ONE (18:05)
--- NOTE | 2017-01-04 20:00 | REPUSA ---
CLINICAL HISTORY: Abdominal pain. TECHNIQUE: Multiple axial CT images were obtained through the abdomen and pelvis after administratio n of intravenous contrast material only. COMPARISON: Correlation is made with prior study dated 12/08/2016. COMMENTS: The liver is of uniform attenuation without mass or defect. There is no intra or extrahepatic biliar y ductal dilatation. The spleen is normal. Status post cholecystectomy. Note again is made of a hy podense lesion in the right adrenal gland measuring approximately 7 x 5.5 cm compatible with an adeno ma. The pancreas is of normal contour and attenuation characteristics. There is no evidence of adre nal mass. Both kidneys demonstrate prompt and equal nephrograms. The kidneys are normal in size, shape and con figuration. There is no evidence of renal or ureteral mass. No renal or ureteral calculi are identi fied. There is no hydroureter or hydronephrosis. 2 cm cyst present in midpole of the left kidney. Status post gastric surgery. Note is made of two periumbilical hernias each containing bowel loops. The one to the right of midli ne appears stable. The one the left of the midline containing much larger portion of small bowel at t his time. Note is also made of air fluid levels in the mid abdominal small bowel with apparent transi tion point distally, this may represent partial small bowel obstruction. No evidence for appendicitis. There is no evidence of abdominal ascites or lymphadenopathy. There is no evidence of intrinsic or extrinsic bladder mass. There is no pelvic ascites or lymphaden opathy. Prostate gland is unremarkable. Images of the lung bases show no evidence of pleural or parenchymal mass. There are no pleural effus ions. The bony structures are free of lytic or blastic lesions. IMPRESSION: 1. Large left adrenal adenoma. 2. Two periumbilical hernias each containing bowel loops. The one to the right of midline appears st able. The one the left of the midline containing much larger portion of small bowel at this time. Not e is also made of air fluid levels in the mid abdominal small bowel with apparent transition point di stally, this may represent partial small bowel obstruction. Thank you for your kind referral of this patient. We appreciate the opportunity to participate in [facility] patient's care.
[2017-01-06] MEDS ORDERED: GABA600T PO (12:46)
== END 2017-01-04 20:38 | disposition left against medical advice (07) ==
LOC: M ED 17:20
DX: K56.60 Unspecified intestinal obstruction (principal); K42.9 Umbilical hernia without obstruction or gangrene; R11.2 Nausea with vomiting, unspecified; K21.9 Gastro-esophageal reflux disease without esophagitis; Z79.899 Other long term (current) drug therapy; Z98.84 Bariatric surgery status; I49.9 Cardiac arrhythmia, unspecified; M54.9 Dorsalgia, unspecified; F41.9 Anxiety disorder, unspecified; F32.9 Major depressive disorder, single episode, unspecified
CPT/HCPCS: 36415; 74177; 80048; 80076; 81001; 82150; 83605; 83690; 85025; 93041; 96374; 96375; 99284; J2405; Q9967

== ENCOUNTER → 2017-02-06 | Outpatient (CLI) | payer OTHER ==
[~2017-02-06] MED LIST changes: +GABA600T PO
== END ==
LOC: M LRY 08:56
PROVIDERS: ATTEND Nurse Practitioner Family
DX: E27.8 Other specified disorders of adrenal gland (principal); Z13.220 Encounter for screening for lipoid disorders; I10 Essential (primary) hypertension; R00.2 Palpitations

== ENCOUNTER → 2017-03-17 | Outpatient (REF) | payer OTHER ==
[2017-03-17 14:11] LABS: CORTISOL AM 11.2 UG/DL (4.3-22.4)
[2017-03-17 14:19] LABS: ALBUMIN 3.6 GM/DL (3.2-5.2); ALBUMIN/GLOBULIN RATIO 1.16 (1.00-1.93); ALKALINE PHOSPHATASE 61 U/L (45-117); ALT/SGPT 17 U/L (12-78); ANION GAP 5 MEQ/L (8-16); AST/SGOT 14 U/L (15-37); BILIRUBIN,TOTAL 0.5 MG/DL (0.2-1.0); BLOOD UREA NITROGEN 11 MG/DL (7-18); CALCIUM LEVEL 8.9 MG/DL (8.5-10.1); CARBON DIOXIDE LEVEL 31 MEQ/L (21-32); CHLORIDE LEVEL 107 MEQ/L (98-107); CHOLESTEROL LEVEL 151 MG/DL (<200); CREATININE FOR GFR 1.08 MG/DL (0.70-1.30); GLOMERULAR FILTRATION RATE > 60.0 (>60); GLUCOSE, FASTING 91 MG/DL (70-105); MAGNESIUM LEVEL 2.1 MG/DL (1.8-2.4); POTASSIUM SERUM 4.7 MEQ/L (3.5-5.1); SODIUM LEVEL 143 MEQ/L (136-145); TOTAL PROTEIN 6.7 GM/DL (6.4-8.2); TRIGLYCERIDES LEVEL 118 MG/DL (<150)
== END ==
LOC: M LAB REF 12:54
PROVIDERS: ATTEND Nurse Practitioner Family
DX: R00.2 Palpitations (principal); I10 Essential (primary) hypertension; Z13.220 Encounter for screening for lipoid disorders; E27.8 Other specified disorders of adrenal gland

== ENCOUNTER 2017-03-25 12:54 | Emergency (ER) | payer OTHER ==
[~2017-03-25] VITALS: Ht 177.8 cm; Wt 167.8 kg
[2017-03-25] MEDS ORDERED: LISI-542 PO (13:22)
[2017-03-25] MEDS ORDERED: BUPR150T3 PO (13:22)
[2017-03-25] MEDS ORDERED: CLON0.5T PO (13:22)
[2017-03-25] MEDS ORDERED: CYCL10TA PO (13:22)
[2017-03-25] MEDS ORDERED: LISI2.5T3 PO (13:22)
[2017-03-25] MEDS: MORPHINE 2 MG/ML 1ML SYRINGE IV PRN ×2 (14:00→15:00)
[2017-03-25] MEDS ORDERED: ONDANSETRON 4MG/2ML VIAL (J2405) IV ONE (14:00)
[2017-03-25] MEDS ORDERED: NS 1,000 ML IV ONE (14:00)
[2017-03-25 14:10] LABS: BASO % 0.1 % (0.0-1.0); EOS # 0.1 K/mm3 (0.0-0.50); LARGE UNSTAINED CELL # 0.1 K/mm3 (0.0-0.4); LARGE UNSTAINED CELL % 0.5 % (0.0-4.0); LYMPH % 9.1 % (24.0-44.0); MEAN CORPUSCULAR HEMOGLOBIN 33.3 pg (27.0-33.0); MEAN CORPUSCULAR HGB CONC 36.2 g/dl (32.0-36.5); MEAN CORPUSCULAR VOLUME 92.1 fl (80.0-96.0); MONO # 0.3 K/mm3 (0.0-0.8); MONO % 2.8 % (0.0-5.0); NEUTROPHILS # 9.8 K/mm3 (1.8-7.7); NEUTROPHILS % 86.4 % (36.0-66.0); PLATELET COUNT, AUTOMATED 221 k/mm3 (150-450); RED CELL DISTRIBUTION WIDTH 13.1 % (11.5-14.5); WHITE BLOOD COUNT 11.3 K/mm3 (4.0-10.0)
[2017-03-25] MEDS ORDERED: GASTROGRAFIN SOLUTION 30ML PO ONE (14:10)
[2017-03-25 14:14] LABS: INR 1.01
[2017-03-25 14:30] LABS: ALBUMIN 3.9 GM/DL (3.2-5.2); ALBUMIN/GLOBULIN RATIO 1.11 (1.00-1.93); ALKALINE PHOSPHATASE 66 U/L (45-117); ALT/SGPT 21 U/L (12-78); ANION GAP 8 MEQ/L (8-16); AST/SGOT 17 U/L (15-37); BILIRUBIN,DIRECT 0.2 MG/DL (0.0-0.2); BILIRUBIN,TOTAL 0.6 MG/DL (0.2-1.0); BLOOD UREA NITROGEN 10 MG/DL (7-18); CALCIUM LEVEL 9.2 MG/DL (8.5-10.1); CARBON DIOXIDE LEVEL 25 MEQ/L (21-32); CHLORIDE LEVEL 106 MEQ/L (98-107); CREATININE FOR GFR 1.08 MG/DL (0.70-1.30); GLOMERULAR FILTRATION RATE > 60.0 (>60); GLUCOSE, FASTING 106 MG/DL (70-105); SODIUM LEVEL 139 MEQ/L (136-145); TOTAL PROTEIN 7.4 GM/DL (6.4-8.2)
[2017-03-25] MEDS ORDERED: GASTROGRAFIN SOLUTION 30ML (Q9963) PO ONE (14:40)
[2017-03-25] MEDS ORDERED: ISOVUE-370 76% 100ML VIAL (Q9967) As Ordered ONE (15:22)
--- NOTE | 2017-03-25 16:22 | REP ---
CT abdomen and pelvis with IV and bowel contrast: There are no comparison studies. There is a midline ventral hernia approximate 7 cm in superior to the umbilicus containing loops of colon. There is no evidence of bowel obstruction or strangulation. The peritoneal defect measures 5.3 cm. The hernia sac measures 12.9 cm. Additionally there is a small fat-containing umbilical hernia. No other ventral hernias are identified. The visualized lung montalvo are unremarkable. The hepatic parenchyma is unremarkable. The the patient has a cholecystectomy. The pancreas is unremarkable. There is bariatric surgery. The spleen is unremarkable. The adrenals, kidneys and abdominal aorta are unremarkable, except for E 2.5 cm left renal cyst with focal overlying the renal cortical atrophy. There is no bowel distension or obstruction. Pelvis: The appendix is unremarkable. There is no ascites or adenopathy. The bladder is unremarkable. There is an isolated retroperitoneal cyst inferior to the liver and above the upper pole of the right kidney, not arising from any organ. This measures approximately 7.8 cm in diameter. Follow up of this cystic lesion with MRI is recommended. Impression: Ventral hernia as described. In addition there is a small fat-containing umbilical hernia. There is no bowel obstruction or strangulation. There is a retroperitoneal cyst on the right, not definitely arising from any organ measuring 7.8 cm in diameter. MRI follow-up of this cystic lesion is recommended. Left renal cyst with overlying focal renal cortical atrophy. Signed by Adarsh Newman MD 03/25/2017 04:12 P
[2017-03-25] MEDS ORDERED: HYDR-3713 PO (16:38)
[2017-03-25] MEDS ORDERED: ZOFR4TAB3 PO (16:38)
[2017-03-25 16:44] VITALS: BP 132/64
--- NOTE | 2017-03-26 10:57 | ED PDOC ---
Post-Departure Follow-Up [facility] faxed formal report of ct abd/p forfu Lex Weems MD March 26, 2017 10:57
== END 2017-03-25 16:54 | disposition home or self-care (01) ==
LOC: M ED 14:02
DX: R10.9 Unspecified abdominal pain (principal); K43.9 Ventral hernia without obstruction or gangrene; F17.210 Nicotine dependence, cigarettes, uncomplicated; I10 Essential (primary) hypertension; E78.5 Hyperlipidemia, unspecified; Z79.899 Other long term (current) drug therapy; Z98.84 Bariatric surgery status; F32.9 Major depressive disorder, single episode, unspecified; F41.9 Anxiety disorder, unspecified; M54.9 Dorsalgia, unspecified

== ENCOUNTER → 2017-04-10 | Outpatient (CLI) | payer OTHER ==
[~2017-04-10] MED LIST changes: +BUPR150T3 PO; +CLON0.5T PO; +CYCL10TA PO; +HYDR-3713 PO; +LISI-542 PO; +LISI2.5T3 PO; +ZOFR4TAB3 PO
== END ==
LOC: M RAD 10:10
PROVIDERS: ATTEND Nurse Practitioner Family
DX: K68.9 Other disorders of retroperitoneum (principal); Z53.9 Procedure and treatment not carried out, unspecified reason

== ENCOUNTER → 2017-04-11 | Outpatient (CLI) | payer OTHER ==
--- NOTE | 2017-04-11 12:21 | REP ---
MRI STUDY OF THE ABDOMEN AND KIDNEYS WITHOUT AND WITH IV CONTRAST: HISTORY: Renal cyst. Comparison CT study March 25, 2017. The gadolinium enhancement dose: 30 mL of intravenous ProHance is administered. TECHNIQUE: Axial and coronal imaging planes utilized. T1- and T2-weighted sequences are obtained. Sequences include TRUE FISP, spin echo, in and [id number], and dynamically acquired post gadolinium enhanced 2D fat sat Vibe images with T1-weighting. MRI FINDINGS: Incidental note is made of a ventral hernia noted on previous CT studies. There is a low T1 high T2-weighted well-circumscribed cyst in the left mid kidney measuring 2.4 cm in greatest diameter. Interestingly, this cyst is associated with overlying cortical atrophy and. It does not enhance and has a benign appearance. There is also a suprarenal cyst on the right as seen on CT. This measures 7.4 x 6.0 x 7.3 cm. It is homogeneously T2 hyperintense and T1 hypointense. There is no enhancement. No septation or nodularity is seen. This has a benign appearance. On MRI scanning, there is no clear organ of origin. It is does appear separate from both the adrenal gland and the kidney. It is probably, a peripheral simple renal cyst. No other renal abnormality is seen. IMPRESSION: 1. Benign appearing bilateral simple renal cysts. 2. Ventral hernia. Signed by Ismael Mcelroy MD 04/11/2017 01:20 P
== END ==
LOC: M RAD 09:47
PROVIDERS: ATTEND Nurse Practitioner Family
DX: E27.8 Other specified disorders of adrenal gland (principal); K68.9 Other disorders of retroperitoneum; N28.1 Cyst of kidney, acquired; K43.9 Ventral hernia without obstruction or gangrene

== ENCOUNTER → 2017-06-17 | Outpatient (REF) | payer OTHER ==
[~2017-06-17] MED LIST changes: +HYDR-3363 PO; +LISI10TA4 PO; +METO1TAB7 PO; +NAPR500T3 PO; +OMEP40CA2 PO; +ROBA500T PO; +SENE8.6T PO; +SENE8.6T3 PO; +SERT-138 PO
[2017-06-17 17:02] LABS: MEAN CORPUSCULAR HEMOGLOBIN 32.7 pg (27.0-33.0); MEAN CORPUSCULAR HGB CONC 35.8 g/dl (32.0-36.5); MEAN CORPUSCULAR VOLUME 91.4 fl (80.0-96.0); RED CELL DISTRIBUTION WIDTH 12.8 % (11.5-14.5); WHITE BLOOD COUNT 7.5 K/mm3 (4.0-10.0)
[2017-06-17 17:12] LABS: ALBUMIN/GLOBULIN RATIO 1.11 (1.00-1.93); ALKALINE PHOSPHATASE 65 U/L (45-117); ALT/SGPT 23 U/L (12-78); ANION GAP 6 MEQ/L (8-16); AST/SGOT 24 U/L (15-37); BILIRUBIN,TOTAL 0.8 MG/DL (0.2-1.0); BLOOD UREA NITROGEN 12 MG/DL (7-18); CALCIUM LEVEL 9.5 MG/DL (8.5-10.1); CARBON DIOXIDE LEVEL 29 MEQ/L (21-32); CHLORIDE LEVEL 108 MEQ/L (98-107); GLOMERULAR FILTRATION RATE > 60.0 (>60); GLUCOSE, FASTING 83 MG/DL (70-105); POTASSIUM SERUM 3.8 MEQ/L (3.5-5.1); SODIUM LEVEL 143 MEQ/L (136-145); TOTAL PROTEIN 7.6 GM/DL (6.4-8.2)
== END ==
LOC: M LAB REF 16:32
PROVIDERS: ATTEND Nurse Practitioner Family
DX: I10 Essential (primary) hypertension (principal)

== ENCOUNTER 2017-07-18 12:43 | Day surgery (SDC) | payer OTHER ==
[~2017-07-18] VITALS: Ht 177.8 cm; Wt 164.2 kg
[~2017-07-18 12:43] MED LIST changes: -NAPR500T3 PO; -ROBA500T PO
[2017-07-18] MEDS ORDERED: LIDOCAINE 1% MDV 20ML VIAL SC PRN (13:00)
[2017-07-18] MEDS ORDERED: LR 1,000 ML IV ONE (13:00)
[2017-07-18] MEDS ORDERED: BUPIVACAINE/EPIN 0.25% 30 ML VIAL As Ordered ONE (15:05)
[2017-07-18] MEDS ORDERED: ROCURONIUM BROMIDE 50 MG/5 ML VIAL/SYRINGE As Ordered ONE ×2 (15:32→16:32)
[2017-07-18] MEDS ORDERED: fentaNYL 100 MCG/2 ML INJECTION (J3010) As Ordered ONE ×3 (15:32→18:11)
[2017-07-18] MEDS ORDERED: PROPOFOL 200 MG/20 ML VIAL As Ordered ONE (15:32)
[2017-07-18] MEDS ORDERED: LIDOCAINE 2% INJ 100 MG/5 ML SDV (FOR ANES.) As Ordered ONE (15:32)
[2017-07-18] MEDS ORDERED: MIDAZOLAM INJ 2 MG/2 ML VIAL (J2250) As Ordered ONE (15:32)
[2017-07-18] MEDS ORDERED: ONDANSETRON 4MG/2ML VIAL (J2405) As Ordered ONE (15:49)
[2017-07-18] MEDS ORDERED: ePHEDrine SULFATE 25 MG/5 ML(5MG/ML) SYRINGE As Ordered ONE (15:51)
[2017-07-18] MEDS ORDERED: NEOSTIGMINE 10 MG/10 ML VIAL (J2710) As Ordered ONE (15:52)
[2017-07-18] MEDS ORDERED: GLYCOPYRROLATE INJ 0.2 MG/ML 2 ML VIAL As Ordered ONE (15:52)
[2017-07-18] MEDS ORDERED: KETOROLAC 60 MG/2 ML VIAL (J1885) As Ordered ONE (15:55)
[2017-07-18] MEDS: fentaNYL 100 MCG/2 ML INJECTION (J3010) IV PRN ×4 (18:10→18:33)
[2017-07-18] MEDS ORDERED: PERCOCET 5MG/325MG TAB As Ordered ONE (18:11)
[2017-07-18] MEDS ORDERED: METOCLOPRAMIDE INJ 10MG/2ML VIAL (J2765) IV PRN (18:30)
[2017-07-18] MEDS ORDERED: MEPERIDINE INJ 25 MG/ML VIAL (J2175) IV PRN (18:30)
[2017-07-18] MEDS ORDERED: ONDANSETRON 4MG/2ML VIAL (J2405) IV PRN (18:30)
[2017-07-18] MEDS ORDERED: LR 1,000 ML IV SCH (18:30)
[2017-07-18] MEDS ORDERED: PERCOCET 5MG/325MG TAB PO PRN (18:30)
[2017-07-18] MEDS ORDERED: NORCO, ANEXSIA 5/325MG TABLET (HYDROcodone/ACETAMINOPHEN) PO PRN (18:30)
--- NOTE | 2017-07-18 19:12 | RO ---
DATE OF PROCEDURE: 07/18/2017 PREOPERATIVE DIAGNOSIS: Incarcerated incisional hernia. POSTOPERATIVE DIAGNOSIS Incarcerated incisional hernia. OPERATIVE PROCEDURE: Laparoscopic incarcerated incisional hernia repair with a 15 x 20 cm Parietex composite mesh with extensive lysis of adhesions. SURGEON: Adarsh Phan MD EXPLOSIVES WORKER: None. ANESTHESIA: General. ESTIMATED BLOOD LOSS: 10 mL COMPLICATIONS: None. INDICATION FOR THE PROCEDURE: The patient is a 41-year-old male presents with a large incarcerated incisional hernia. Status post previous exploratory laparotomy. Recommendation is to proceed with laparoscopic and possible open repair. Risks and benefits of the procedure not limited but including bleeding, infection, hernia formation, hernia recurrence, damage to surrounding structures, need for further surgery were discussed in detail with the patient. Informed consent was obtained and the procedure was planned. DESCRIPTION OF PROCEDURE: The patient brought back to operating room three. After sufficient sedation, the abdomen was sterilely prepped and draped. Next, a time-out was done to confirm proper patient and proper procedure. Following that, a 5 mm incision made left upper quadrant. Veress needle was inserted and the abdomen was insufflated to 50 mmHg. Next, a 5 mm OptiVu port was used to gain access to the abdomen. Once the abdomen was entered there were extensive adhesions throughout the entire abdomen. I was able to see a small window down into the left lower quadrant to place another 5 mm port. Once that was placed I was able to use the Enseal to start to take down adhesions lateral to medial. However, there were loops of small bowel that were encountered, but I was able to free up enough to see over to the right side the abdomen. Two more 5 mm ports were placed on the right side, then going from right to left, continued to take down adhesions as far as we could circumferentially and then using a combination of access from the ports from [id number], a combination of sharp and blunt dissection. After about an hour and a half of lysis of adhesions we were able to reduce three individual incarcerated hernias containing loops of small bowel and fat. Once everything was completely reduced, the three defects were all close together. The total defect length measured approximately 9 x 12 cm in size all along the midline. We took the largest Parietex composite mesh that we had. It was 15 x 20 cm, placed four #4-0 Vicryl sutures on all four sides, placed it inside the abdomen. The Salvador-Mi needle was used to bring the transvaginal sutures out through the abdominal wall and they were tied in place. Next, three secure strap tackers were used to place three rows of tacks around the perimeter of the mesh to hold it in place. Once that was completed, the abdomen was examined to confirm hemostasis. The abdomen was then desufflated. Skin incisions closed with #4-0 Vicryl subcuticular sutures. The abdomen was cleaned and dried. Steri-Strips, 4 x 4 and tape were applied thus ending procedure.
[2017-07-18 20:00] VITALS: BP 145/75
[2017-09-05] MEDS ORDERED: ROBA500T PO (14:27)
[2017-09-05] MEDS ORDERED: NAPR500T3 PO (14:27)
== END 2017-07-18 20:15 | disposition home or self-care (01) ==
LOC: M SDC 12:43
PROVIDERS: ATTEND Surgery
DX: K43.0 Incisional hernia with obstruction, without gangrene (principal); I10 Essential (primary) hypertension; K21.9 Gastro-esophageal reflux disease without esophagitis; E78.00 Pure hypercholesterolemia, unspecified; F41.9 Anxiety disorder, unspecified; F32.9 Major depressive disorder, single episode, unspecified; R01.1 Cardiac murmur, unspecified; K59.00 Constipation, unspecified; R29.898 Other symptoms and signs involving the musculoskeletal system; F12.90 Cannabis use, unspecified, uncomplicated; Z79.899 Other long term (current) drug therapy; Z98.84 Bariatric surgery status; Z72.0 Tobacco use
CPT/HCPCS: 44180; 49655; C1781

== ENCOUNTER 2018-02-25 07:04 | Emergency (ER) | payer OTHER ==
[2018-02-25] MEDS: NS 1,000 ML IV (07:45)
[2018-02-25 08:19] LABS: BASO % 0.7 % (0.0-1.0); EOS # 0.2 10^3/uL (0.0-0.50); EOS % 3.3 % (0.0-3.0); HEMOGLOBIN 16.5 g/dl (13.5-17.5); IMMATURE GRANULOCYTE % 0.3 % (0-3.0); LYMPH # 1.4 10^3/uL (1.5-4.5); LYMPH % 23.1 % (24.0-44.0); MEAN CORPUSCULAR HEMOGLOBIN 32.4 pg (27.0-33.0); MEAN CORPUSCULAR HGB CONC 35.1 g/dl (32.0-36.5); MEAN CORPUSCULAR VOLUME 92.3 fl (80.0-96.0); MONO # 0.4 10^3/uL (0.0-0.8); MONO % 6.7 % (0.0-5.0); NEUTROPHILS # 3.9 10^3/uL (1.8-7.7); NEUTROPHILS % 65.9 % (36.0-66.0); PLATELET COUNT, AUTOMATED 225 10^3/uL (150-450); RED BLOOD COUNT 5.09 10^6/uL (4.30-6.10)
[2018-02-25] MEDS: GASTROGRAFIN SOLUTION 30ML PO ×2 (08:29→09:05)
[2018-02-25 08:36] LABS: KETONE, URINE AUTO RFX TRACE mg/dL (NEGATIVE); LEUKOCYTE ESTERASE UR AUTO RFX NEGATIVE (NEGATIVE); MUCUS, URINE RFX SMALL (NEGATIVE); NITRITE, URINE AUTO RFX NEGATIVE (NEGATIVE); RBC, URINE AUTO RFX 2 /HPF (0-3); SPECIFIC GRAVITY UR AUTO RFX 1.025 (1.002-1.035); SQUAM EPITHELIAL CELL UR AURFX 0 /HPF (0-6); WBC, URINE AUTO RFX 1 /HPF (0-3)
[2018-02-25 08:43] LABS: LACTIC ACID SEPSIS PROTOCOL 0.9 MMOL/L (0.4-2.0)
[2018-02-25] MEDS ORDERED: ISOVUE-370 76% 100ML VIAL (Q9967) As Ordered (09:56)
[2018-02-25] MEDS: KETOROLAC 30 MG/ML VIAL (J1885) IV (10:23)
[2018-02-25 10:44] LABS: ALBUMIN 4.1 GM/DL (3.2-5.2); ALBUMIN/GLOBULIN RATIO 1.28 (1.00-1.93); ALKALINE PHOSPHATASE 60 U/L (45-117); ALT/SGPT 38 U/L (12-78); ANION GAP 6 MEQ/L (8-16); AST/SGOT 45 U/L (7-37); BILIRUBIN,DIRECT 0.2 MG/DL (0.0-0.2); BILIRUBIN,TOTAL 1.1 MG/DL (0.2-1.0); BLOOD UREA NITROGEN 15 MG/DL (7-18); CARBON DIOXIDE LEVEL 26 MEQ/L (21-32); CHLORIDE LEVEL 108 MEQ/L (98-107); CREATININE FOR GFR 0.92 MG/DL (0.70-1.30); GLOMERULAR FILTRATION RATE > 60.0 (>60); GLUCOSE, FASTING 95 MG/DL (70-100); LIPASE 162 U/L (73-393); POTASSIUM SERUM 4.3 MEQ/L (3.5-5.1); SODIUM LEVEL 140 MEQ/L (136-145); TOTAL PROTEIN 7.3 GM/DL (6.4-8.2)
== END 2018-02-25 11:14 | disposition home or self-care (01) ==
LOC: M ED 07:04
DX: R10.9 Unspecified abdominal pain (principal); I10 Essential (primary) hypertension; K21.9 Gastro-esophageal reflux disease without esophagitis; F41.9 Anxiety disorder, unspecified; F32.9 Major depressive disorder, single episode, unspecified; Z98.84 Bariatric surgery status; F17.200 Nicotine dependence, unspecified, uncomplicated; Z79.899 Other long term (current) drug therapy
CPT/HCPCS: Q9963

== ENCOUNTER → 2018-11-26 | Outpatient (REF) | payer OTHER ==
[~2018-11-26] MED LIST changes: -CLON0.5T PO; +CLON0.5T8 PO; -GABA600T PO; +GABA600T4 PO; -LISI2.5T3 PO; +LISI2.5T5 PO; +NAPR-885 PO; +ROBA500T PO; +ZOFR4TAB14 PO; -ZOFR4TAB3 PO
== END ==
LOC: M LAB REF 13:15
PROVIDERS: ATTEND Internal Medicine Endocrinology, Diabetes & Metabolism
DX: E04.1 Nontoxic single thyroid nodule (principal)

== ENCOUNTER 2019-02-18 17:39 | Emergency (ER) | payer OTHER ==
[~2019-02-18] VITALS: Ht 175.3 cm; Wt 160.9 kg
[~2019-02-18 17:39] MED LIST changes: -/CELE20CA OR; +CELE1CAP4 OR; +LISI-1046 PO; -LISI2.5T5 PO; -SENE8.6T PO; +SENN1TAB38 PO
[2019-02-18] MEDS ORDERED: MELO15TA28 (17:52)
[2019-02-18] MEDS ORDERED: BACL10TA2 (17:52)
[2019-02-18] MEDS ORDERED: BUPR300T34 (17:52)
[2019-02-18] MEDS ORDERED: LISI-538 (17:52)
[2019-02-18 18:03] VITALS: BP 172/98
[2019-02-18] MEDS ORDERED: KETOROLAC 60 MG/2 ML VIAL (J1885) IM ONE (18:30)
[2019-02-18] MEDS ORDERED: PERCOCET 5MG/325MG TAB PO ONE (18:30)
[2019-02-18] MEDS ORDERED: diazePAM 10 MG TAB PO ONE (18:30)
[2019-02-18] MEDS ORDERED: SOMA350T PO (18:34)
[2019-02-18] MEDS ORDERED: LIDO5DIS41 TOP (18:34)
== END 2019-02-18 19:06 | disposition home or self-care (01) ==
LOC: M ED 17:39
DX: M54.12 Radiculopathy, cervical region (principal); I10 Essential (primary) hypertension; G89.29 Other chronic pain; Z98.84 Bariatric surgery status; Z79.02 Long term (current) use of antithrombotics/antiplatelets
CPT/HCPCS: 96372; 99283; J1885

== ENCOUNTER 2019-09-14 15:12 | Emergency (ER) | payer BC, OTHER ==
[~2019-09-14] VITALS: Ht 177.8 cm; Wt 175.3 kg
[~2019-09-14 15:12] MED LIST changes: +BACL10TA2; +BUPR300T34; +LIDO5DIS41 TOP; +LISI-538; +MELO15TA28; -OMEP40CA2 PO; +OMEP40CA97 PO; +SOMA350T PO
[2019-09-14] MEDS ORDERED: ALBU8.5H IH ×2 (15:40→18:17)
[2019-09-14] MEDS: LEVALBUTEROL 1.25 MG/0.5 ML CONCENTRATE NEB INH SCH ×3 (17:17→17:55)
[2019-09-14 17:33] LABS: BASO % 0.5 % (0.0-1.0); EOS # 0.4 10^3/uL (0.0-0.5); EOS % 5.7 % (0.0-3.0); HEMATOCRIT 44.5 % (42.0-52.0); HEMOGLOBIN 15.1 g/dl (13.5-17.5); LYMPH # 1.9 10^3/uL (1.5-5.0); LYMPH % 30.3 % (24.0-44.0); MEAN CORPUSCULAR HEMOGLOBIN 32.6 pg (27.0-33.0); MEAN CORPUSCULAR HGB CONC 33.9 g/dl (32.0-36.5); MEAN CORPUSCULAR VOLUME 96.1 fl (80.0-96.0); MONO # 0.4 10^3/uL (0.0-0.8); MONO % 6.1 % (0.0-5.0); NEUTROPHILS # 3.6 10^3/uL (1.5-8.5); NEUTROPHILS % 57.2 % (36.0-66.0); PLATELET COUNT, AUTOMATED 186 10^3/uL (150-450); RED BLOOD COUNT 4.63 10^6/uL (4.30-6.10); WHITE BLOOD COUNT 6.4 10^3/uL (4.0-10.0)
--- NOTE | 2019-09-14 17:42 | REP ---
Chest x-ray: Two views. History: Chest tightness. Tobacco use. Asthma. Comparison chest x-ray: December 08, 2016. Findings: The lungs appear slightly hyperinflated but are clear. Pleural angles are sharp. Heart size is normal. There are minimal degenerative spurs in the thoracic spine. Pulmonary vasculature is not increased. Impression: Slight hyperinflation. Otherwise no acute disease. Electronically Signed by Ismael Mcelroy MD 09/14/2019 05:33 P
[2019-09-14 17:55] LABS: ALBUMIN 3.9 GM/DL (3.2-5.2); ALT/SGPT 38 U/L (12-78); BILIRUBIN,TOTAL 0.5 MG/DL (0.2-1.0); BLOOD UREA NITROGEN 15 MG/DL (7-18); CARBON DIOXIDE LEVEL 31 MEQ/L (21-32); CHLORIDE LEVEL 109 MEQ/L (98-107); CK-MB VALUE MASS 3.3 NG/ML (<3.6); CPK CREATINE PHOSPHOKINASE 386 U/L (39-308); CREATININE FOR GFR 1.02 MG/DL (0.70-1.30); GLOMERULAR FILTRATION RATE > 60.0 (>60); GLUCOSE, FASTING 83 MG/DL (70-100); MB/CK RELATIVE INDEX 0.85 (< OR =4); POTASSIUM SERUM 4.1 MEQ/L (3.5-5.1); SODIUM LEVEL 144 MEQ/L (136-145); TROPONIN I < 0.02 NG/ML (< 0.10)
[2019-09-14] MEDS ORDERED: DOXY100C37 PO ×2 (18:09→18:17)
[2019-09-14] MEDS ORDERED: PRED20TA PO ×2 (18:09→18:17)
[2019-09-14] MEDS ORDERED: predniSONE 20 MG TAB PO ONE (18:15)
[2019-09-14] MEDS ORDERED: DOXYCYCLINE HYCLATE 100 MG TAB PO ONE (18:15)
[2019-09-14 18:59] VITALS: BP 154/90
--- NOTE | 2019-09-14 23:27 | ECGEPIP ---
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
== END 2019-09-14 18:59 | disposition home or self-care (01) ==
LOC: M ED 15:12
DX: J45.998 Other asthma (principal); F17.200 Nicotine dependence, unspecified, uncomplicated; F17.220 Nicotine dependence, chewing tobacco, uncomplicated; Z98.84 Bariatric surgery status; I10 Essential (primary) hypertension; K21.9 Gastro-esophageal reflux disease without esophagitis; M54.5 Low back pain; F41.9 Anxiety disorder, unspecified; F32.9 Major depressive disorder, single episode, unspecified; Z79.899 Other long term (current) drug therapy

== ENCOUNTER → 2019-10-04 | Outpatient (REF) | payer BC ==
[~2019-10-04] MED LIST changes: +ALBU8.5H IH; +CLON0.5T2 PO; -CLON0.5T8 PO; +DOXY100C37 PO; +PRED20TA PO
[2019-10-04 10:27] LABS: SEMEN APPEARANCE OPAQUE (OPAQUE); SEMEN VISCOSITY VISCOUS (LIQUID); SPERM CONCENTRATION 29.4 M/ml (>=15.0); WBC CONCENTRATION <=1 M/ml (<=1 M/ml)
== END ==
LOC: M LAB REF 09:49
PROVIDERS: ATTEND Family Medicine
DX: N46.9 Male infertility, unspecified (principal)

== ENCOUNTER → 2019-12-26 | Outpatient (REF) | payer BC ==
[~2019-12-26] MED LIST changes: -BUPR300T34; +BUPR300T92
== END ==
LOC: M LAB REF 15:02
PROVIDERS: ATTEND Physician Assistant Medical
DX: R50.9 Fever, unspecified (principal)

== ENCOUNTER → 2020-03-31 | Outpatient (REF) | payer BC, OTHER ==
[~2020-03-31] MED LIST changes: +CYCL-707 PO; -CYCL10TA PO; -LISI-1046 PO; +LISI2.5T2 PO
[2020-03-31 11:12] LABS: SEMEN APPEARANCE OPAQUE (OPAQUE); SEMEN VISCOSITY VISCOUS (LIQUID); SEMEN VOLUME 0.9 ml (2.0-5.0); SEMEN pH 8.5 (7.0-8.0); SPERM CONCENTRATION 93.5 M/ml (>=15.0); WBC CONCENTRATION <=1 M/ml (<=1 M/ml)
== END ==
LOC: M LAB REF 11:07
PROVIDERS: ATTEND Specialist
DX: E29.1 Testicular hypofunction (principal)

== ENCOUNTER 2020-08-22 11:31 | Emergency (ER) | payer OTHER, BC ==
[~2020-08-22] VITALS: Ht 177.8 cm; Wt 168.2 kg
[2020-08-22] MEDS ORDERED: MELO15TA28 (11:45)
[2020-08-22] MEDS ORDERED: HYDR-3363 (11:45)
[2020-08-22] MEDS ORDERED: ONDANSETRON 4 MG ORAL DISINTEGRATING TAB PO ONE (12:15)
[2020-08-22] MEDS: MORPHINE 4 MG/ML 1ML VIAL/SYRINGE (J2270) IM PRN ×3 (12:44→13:44)
--- NOTE | 2020-08-22 12:51 | REPVR ---
PROCEDURE INFORMATION: Exam: CT Head Without Contrast Exam date and time: 08/22/2020 12:32 PM Age: 44 years old Clinical indication: Injury or trauma; Fall; Blunt trauma (contusions or hematomas) TECHNIQUE: Imaging protocol: Computed tomography of the head without contrast. Radiation optimization: All CT scans at this facility use at least one of these dose optimization techniques: automated exposure control; mA and/or kV adjustment per patient size (includes targeted exams where dose is matched to clinical indication); or iterative reconstruction. COMPARISON: No relevant prior studies available. FINDINGS: Brain: No hemorrhage. Unremarkable white matter for the patient's age. No mass effect. No evolving territorial infarct. Cerebral ventricles: No ventriculomegaly. Bones/joints: No acute calvarial fracture seen. Chronic apex right deviation and spurring of the nasal septum. Paranasal sinuses: Trace maxillary sinus mucosal thickening. Retention cyst or polyp in the right maxillary sinus. Mastoid air cells: Visualized mastoid air cells are well aerated. Soft tissues: Unremarkable. IMPRESSION: No acute intracranial abnormality seen. Electronically signed by: Lisa Vital On 08/22/2020 12:51:35 PM
--- NOTE | 2020-08-22 12:59 | REPVR ---
PROCEDURE INFORMATION: Exam: CT Thoracic Spine Without Contrast Exam date and time: 08/22/2020 12:32 PM Age: 44 years old Clinical indication: Injury or trauma; Fall; Blunt trauma (contusions or hematomas) TECHNIQUE: Imaging protocol: Computed tomography images of the thoracic spine without contrast. Radiation optimization: All CT scans at this facility use at least one of these dose optimization techniques: automated exposure control; mA and/or kV adjustment per patient size (includes targeted exams where dose is matched to clinical indication); or iterative reconstruction. COMPARISON: No relevant prior studies available. FINDINGS: Vertebrae: No acute fracture. Normal alignment. Full evaluation of the intervertebral discs and intraspinal contents is limited with CT imaging. Clinical findings will determine the need for further evaluation with MRI imaging. Soft tissues: Unremarkable. Kidneys and ureters: There is a 9.1 x 6.3 by 7.7 cm cystic appearing mass interposed between the right lobe of the liver and the upper pole of the right kidney. This could represent an exophytic renal cyst but is not fully characterized on this exam. IMPRESSION: 1. No posttraumatic thoracic spine abnormality identified. 2. Cystic appearing mass interposed between the right lobe of the liver and the upper pole of the right kidney. This could represent an exophytic renal cyst but is not fully characterized on this exam. Direct comparison to prior exams is recommended. In the absence of prior studies for comparison purposes, followup imaging is recommended. Electronically signed by: Jose Adams On 08/22/2020 12:59:15 PM
--- NOTE | 2020-08-22 13:02 | REPVR ---
PROCEDURE INFORMATION: Exam: CT Lumbar Spine Without Contrast Exam date and time: 08/22/2020 12:32 PM Age: 44 years old Clinical indication: Injury or trauma; Fall; Blunt trauma (contusions or hematomas) TECHNIQUE: Imaging protocol: Computed tomography images of the lumbar spine without contrast. Radiation optimization: All CT scans at this facility use at least one of these dose optimization techniques: automated exposure control; mA and/or kV adjustment per patient size (includes targeted exams where dose is matched to clinical indication); or iterative reconstruction. COMPARISON: CR Spine. Lumbosacral, complete 03/29/2014 12:50 AM FINDINGS: Vertebrae: No acute fracture. Normal alignment. Full evaluation of the intervertebral discs and intraspinal contents is limited with CT imaging. Clinical findings will determine the need for further evaluation with MRI imaging. Soft tissues: Unremarkable. IMPRESSION: No post traumatic findings identified. Full evaluation of the intervertebral discs and intraspinal contents is limited with CT imaging. Clinical findings will determine the need for further evaluation with MRI imaging. Electronically signed by: Jose Adams On 08/22/2020 13:02:06 PM
--- NOTE | 2020-08-22 13:03 | REPVR ---
PROCEDURE INFORMATION: Exam: CT Cervical Spine Without Contrast Exam date and time: 08/22/2020 12:32 PM Age: 44 years old Clinical indication: Injury or trauma; Fall; Blunt trauma TECHNIQUE: Imaging protocol: Computed tomography images of the cervical spine without contrast. Radiation optimization: All CT scans at this facility use at least one of these dose optimization techniques: automated exposure control; mA and/or kV adjustment per patient size (includes targeted exams where dose is matched to clinical indication); or iterative reconstruction. COMPARISON: CR Spine,Cervical 2 or 3 views 09/05/2017 1:53 PM FINDINGS: Vertebrae: Straightening of the cervical lordosis may be positional or due to muscle spasm. No acute fracture seen. Disc height loss and spondylosis with uncovertebral arthropathy is moderate at C2-C3, C5-C6 and C6-C7. [id number] central spinal canal stenoses at C5-C6 and C6-C7. Neural foraminal stenoses due to uncovertebral and facet arthropathy, most notably on the right at C6-C7. Discs/Spinal canal/Neural foramina: See "Vertebrae" finding. Soft tissues: Unremarkable. Mildly enlarged left jugulodigastric lymph node measures 1.9 x 1.6 cm, nonspecific, potentially reactive. There is an adjacent small subcentimeter calcified lymph node. Lungs: Lung apices are normal. IMPRESSION: No cervical spine fracture seen. Electronically signed by: Lisa Vital On 08/22/2020 13:03:05 PM
[2020-08-22] MEDS ORDERED: MORPHINE 4 MG/ML 1ML VIAL/SYRINGE (J2270) IV ONE (13:15)
[2020-08-22 15:08] VITALS: BP 140/76
--- NOTE | 2020-08-22 19:43 | ED PDOC ---
Post-Departure Follow-Up dr mendez faxed formal report of c t spine for fu Lex Weems MD Aug 22, 2020 19:43
== END 2020-08-22 15:12 | disposition home or self-care (01) ==
LOC: M ED 11:31 → EDBD 11:31 → M ED 15:12
DX: S16.1XXA Strain of muscle, fascia and tendon at neck level, initial encounter (principal); S09.90XA Unspecified injury of head, initial encounter; W11.XXXA Fall on and from ladder, initial encounter; Y92.89 Other specified places as the place of occurrence of the external cause; Y93.9 Activity, unspecified; Y99.0 Civilian activity done for income or pay; I10 Essential (primary) hypertension; J45.909 Unspecified asthma, uncomplicated; Z98.84 Bariatric surgery status; R93.89 Abnormal findings on diagnostic imaging of other specified body structures; Z79.899 Other long term (current) drug therapy
CPT/HCPCS: 70450; 72125; 72128; 72131; 73030; 93041; 94760; 96372; 96374; 99284; J2270; Q0162

== ENCOUNTER → 2020-08-28 | Outpatient (CLI) | payer BC ==
[~2020-08-28] MED LIST changes: +HYDR-3363
[2020-08-28 11:19] LABS: APPEARANCE, URINE MANUAL CLEAR (CLEAR); BILIRUBIN, URINE MANUAL NEGATIVE (NEGATIVE); BLOOD URINE MANUAL NEGATIVE (NEGATIVE); COLOR, URINE MANUAL YELLOW (YELLOW); GLUCOSE, URINE (UA) MANUAL NEGATIVE (NEGATIVE); KETONE, URINE MANUAL NEGATIVE (NEGATIVE); LEUKOCYTE ESTERASE, URINE MAN NEGATIVE (NEGATIVE); NITRITE, URINE MANUAL NEGATIVE (NEGATIVE); PROTEIN, URINE MANUAL NEGATIVE (NEGATIVE); UROBILINOGEN, URINE MANUAL NORMAL (NORMAL)
[2020-08-28 11:21] LABS: SPERM, URINE SMALL AMOUNT
== END ==
LOC: M LAB 10:05
PROVIDERS: ATTEND Physician Assistant
DX: E29.1 Testicular hypofunction (principal)